=== PATIENT | female | born 1995 | race Caucasian/White ===

== ENCOUNTER 2020-03-07 10:18 | Outpatient (REF) | payer OTHER, SELFPAY ==
--- NOTE | 2020-03-07 10:21 | US_ITS ---
EXAMINATION: US THYROID CLINICAL INFORMATION: Nontoxic single thyroid nodule. COMPARISON: Ultrasound soft tissue head/neck thyroid dated 09/29/2019. TECHNIQUE: Linear transducer byers-scale and color Doppler examination with attention to the region of the thyroid. FINDINGS: SIZE: Measurements of the thyroid lobes and nodules are given in sagittal, anteroposterior and transverse dimensions respectively. Right Thyroid Lobe: 4.1 x 1.0 x 1.4 cm, volume 3.1 mL. Previously 4.3 x 0.9 x 1.4 cm, volume 2.7 mL. Parenchyma: The gland echotexture is homogeneous. Thyroid vascularity is normal. Left Thyroid Lobe: 4.4 x 1.0 x 1.3 cm, volume 2.8 mL. Previously 4.3 x 0.9 x 1.4 cm, volume 2.6 mL. Parenchyma: The gland echotexture is homogeneous. Thyroid vascularity is normal. Isthmus: 0.2 cm in maximum AP dimension. Previously 0.2 cm. RIGHT THYROID LOBE: There are 2 nodules seen. 1. Location: Midpole. Size: 0.4 x 0.3 x 0.4 cm. Previous: 0.4 x 0.3 x 0.4 cm. Nodule characteristics: Hypoechoic, smoothly marginated with no intranodular flow. 2. Location: Lower pole. Size: 0.5 x 0.3 x 0.4 cm. Previous: 0.9 x 0.5 x 0.6 cm. Nodule characteristics: Hypoechoic, irregular margins with intranodular flow. ISTHMUS: No nodules. LEFT THYROID LOBE: No nodules. NODES: No lymphadenopathy is seen in the tissue surrounding the thyroid gland. US/US thyroid IMPRESSION: Subcentimeter thyroid nodules in right thyroid lobe.
== END 2020-03-07 10:19 | disposition home or self-care (01) ==
LOC: HO.US 10:18
PROVIDERS: Visit Provider Family Medicine
DX: E03.9 Hypothyroidism, unspecified (principal); E04.1 Nontoxic single thyroid nodule
CPT/HCPCS: 76536

== ENCOUNTER 2020-03-30 08:40 | Outpatient (REF) | payer OTHER, SELFPAY ==
[2020-03-30 11:26] LABS: Alanine Aminotransferase 11 U/L (0-31); Albumin Level 4.4 g/dL (3.5-5.0); Alkaline Phosphatase 88 U/L (39-117); Anion Gap 13 (12-20); Aspartate Amino Transferase 12 U/L (5-31); Bilirubin Total 0.9 mg/dL (0.0-1.0); Blood Urea Nitrogen 11 mg/dL (9-16); Calcium 9.3 mg/dL (8.4-10.2); Carbon Dioxide 28 mmol/L (22-29); Chloride 105 mmol/L (96-108); Estimated Glomerular Filt Rate > 60; Glucose Random 92 mg/dL (60-115); Potassium 4.4 mmol/l (3.3-5.1); Sodium 142 mmol/L (135-145); Total Protein 7.2 g/dL (6.5-8.0)
== END 2020-03-30 08:41 | disposition home or self-care (01) ==
LOC: HO.WFDLDS 08:40
PROVIDERS: Visit Provider Family Medicine
DX: Z00.00 Encounter for general adult medical examination without abnormal findings (principal); E03.9 Hypothyroidism, unspecified
CPT/HCPCS: 36415; 80053; 84443

== ENCOUNTER 2020-04-08 08:18 | Outpatient (REF) | payer OTHER, SELFPAY ==
--- NOTE | ~2020-04-08 | XR_ITS ---
EXAMINATION: XR ANKLE, RIGHT CLINICAL INFORMATION: Pain COMPARISON: None TECHNIQUE: AP, lateral, and mortise views of the left ankle. FINDINGS: The bones and soft tissues are normal. No fracture. Alignment is anatomic. Joint spaces are maintained. No joint effusion. XR/XR ankle RT min 3V IMPRESSION: Unremarkable right ankle exam.
== END 2020-04-08 08:19 | disposition home or self-care (01) ==
LOC: HO.XRAY 08:18
PROVIDERS: PCP Family Medicine; Visit Provider Family Medicine
DX: M25.571 Pain in right ankle and joints of right foot (principal)
CPT/HCPCS: 73610

== ENCOUNTER → 2020-06-03 08:18 | Outpatient (BNVA) | payer OTHER, SELFPAY | PROVIDERS: PCP Family Medicine; Visit Provider Physician Assistant | DX: E66.9 Obesity, unspecified (principal) | CPT/HCPCS: 99202 ==

== ENCOUNTER → 2020-06-06 08:12 | Outpatient (BNVA) | payer OTHER, SELFPAY | PROVIDERS: PCP Family Medicine; Visit Provider Dietitian, Registered | DX: E66.9 Obesity, unspecified (principal) | CPT/HCPCS: 97802 ==

== ENCOUNTER → 2020-06-08 08:24 | Outpatient (BNVA) | payer OTHER, SELFPAY | PROVIDERS: PCP Family Medicine; Visit Provider Internal Medicine ==

== ENCOUNTER 2020-06-15 07:43 | Outpatient (REF) | payer OTHER, SELFPAY | END 2020-06-15 07:44 | disposition home or self-care (01) | LOC: HO.WFDLDS 07:43 | PROVIDERS: Visit Provider Physician Assistant | DX: Z13.89 Encounter for screening for other disorder (principal) ==

== ENCOUNTER 2020-06-17 08:14 | Outpatient (REF) | payer OTHER, SELFPAY ==
[2020-06-17 09:40] LABS: MANUAL DIFF FLAG NO
[2020-06-17 09:57] LABS: Basophils Percent Auto 0.4 % (0-2); C Reactive Protein 1.24 mg/dL (< or = 0.50); Eosinophils Absolute Auto 0.1 X10*3/uL (0.0-0.4); Eosinophils Percent Auto 1.6 % (0-4); Hemoglobin 14.7 g/dl (12.0-16.0); Imm Gran Abs Auto 0.03 X10*3/uL (0.00-0.03); Imm Gran Pct Auto 0.4 % (0.0-0.4); Iron 117 mcg/dL (30-160); Lymphocytes Absolute Auto 1.8 X10*3/uL (1.2-4.9); Lymphocytes Percent Auto 21.9 % (20-40); Mean Corpuscular HGB Conc 33.4 g/dl (31.0-35.0); Mean Corpuscular Hemoglobin 29.7 pg (27.0-33.0); Mean Corpuscular Volume 88.9 fL (80-98); Monocytes Absolute Auto 0.6 X10*3/uL (0.1-1.2); Monocytes Percent Auto 7.2 % (2-11); Neutrophils Absolute Auto 5.6 X10*3/uL (2.0-8.3); Neutrophils Percent Auto 68.5 % (45-73); Percent Iron Saturation 36 % (15-50); Platelet Count 264 X10*3/uL (160-400); Red Blood Count 4.95 X10*6/uL (4.20-5.50); Red Cell Distribution Width 12.9 % (11.0-16.0); Total Iron Binding Capacity 322 mcg/dL (228-428); Unsaturated Iron Binding 205 ug/dL; White Blood Count 8.1 X10*3/uL (4.8-10.8)
[2020-06-17 09:58] LABS: Cholesterol 147 mg/dL; HDL Cholesterol 35 mg/dL; LDL Cholesterol Calculated 98 mg/dl; Triglycerides 70 mg/dL
[2020-06-17 10:03] LABS: Estimated Average Glucose 88 mg/dL; Hemoglobin A1c % 4.7 %
[2020-06-17 10:17] LABS: Ferritin 109 ng/mL (10-122); Vitamin D 25-OH Total 29.9 ng/mL (>30)
[2020-06-17 10:30] LABS: Free T4 (Free Thyroxine) 1.07 ng/dL (0.71-1.85); Thyroid Stimulating Hormone 1.79 uIU/mL (0.32-4.0)
[2020-06-17 10:45] LABS: Folate 18.1 ng/mL (> or = 4.0); Vitamin B12 750 pg/mL (200-900)
[2020-06-18 06:01] LABS: Insulin Level Total 6.7 uIU/mL
[2020-06-18 10:02] LABS: Thyroglobulin Antibodies <1 IU/mL (< or = 1); Thyroid Peroxidase Antibodies <1 IU/mL (<9)
[2020-06-20 16:17] LABS: Calcium (PTHI) 9.4 mg/dL (8.6-10.2); PTHI 30 pg/mL (14-64)
[2020-06-21 02:56] LABS: Zinc 71 mcg/dL (60-130)
[2020-06-22 10:26] LABS: Vitamin A 33 mcg/dL (38-98)
[2020-06-23 09:16] LABS: Vitamin B1 7 nmol/L (8-30)
== END 2020-06-17 08:15 | disposition home or self-care (01) ==
LOC: HO.LAB 08:14
PROVIDERS: Absent Provider Internal Medicine; PCP Family Medicine; Visit Provider Physician Assistant
DX: E66.01 Morbid (severe) obesity due to excess calories (principal); E03.9 Hypothyroidism, unspecified; E04.2 Nontoxic multinodular goiter; E55.9 Vitamin D deficiency, unspecified
CPT/HCPCS: 36415; 80061; 82306; 82607; 82728; 82746; 83036; 83525; 83540; 83970; 84425; 84439; 84443; 84590; 84630; 85025; 86140; 86376; 86800

== ENCOUNTER → 2020-07-21 08:09 | Outpatient (BNVA) | payer OTHER, SELFPAY | PROVIDERS: PCP Family Medicine; Visit Provider Physician Assistant ==

== ENCOUNTER 2020-07-28 08:23 | Outpatient (REF) | payer OTHER, SELFPAY ==
--- NOTE | 2020-07-28 09:12 | P.BOP_ITS ---
Brief Operative Note Date of Service: 07/28/20 Surgeon: Ayanna Bajwa DO EXAMINATION: US THYROID CLINICAL INFORMATION: Multinodular Thyroid COMPARISON: Prior TECHNIQUE: Linear transducer byers-scale and color Doppler examination with attention to the region of the thyroid. FINDINGS: SIZE: Measurements of the thyroid lobes and nodules are given in sagittal, anteroposterior and transverse dimensions respectively. Right Thyroid Lobe: 4.21 x 1.11 x 1.54 cm, volume 3.78 mL. Parenchyma: The gland echotexture is heterogenous. Thyroid vascularity is normal. Left Thyroid Lobe: 4.5 x 0.91 x 1.4 cm, volume 3.03 mL. Parenchyma: The gland echotexture is heterogenous. Thyroid vascularity is normal. Isthmus: 1.15 cm in maximum AP dimension. RIGHT THYROID LOBE: There is 1 nodule in the right mid pole. There is a 0.807 x 0.348 x 0.564 cm predominantly cystic nodule. LEFT THYROID LOBE: There are no nodules. NODES: Small lymph node posterior to the right mid pole. IMPRESSION: Small, heterogenous thyroid gland with a solitary cystic appearing nodule within the right mid pole. Was an Animal Damage Control Agent used for this Procedure?: No Estimated blood loss (mL): 0
== END 2020-07-28 08:24 | disposition home or self-care (01) ==
LOC: HO.US 08:23
PROVIDERS: Visit Provider Internal Medicine
DX: E04.2 Nontoxic multinodular goiter (principal)
CPT/HCPCS: 76536

== ENCOUNTER → 2020-08-10 07:57 | Outpatient (BNVA) | payer OTHER, SELFPAY | PROVIDERS: Visit Provider Internal Medicine ==

== ENCOUNTER 2020-09-20 10:18 | Outpatient (REF) | payer OTHER, SELFPAY ==
--- NOTE | ~2020-09-20 | XR_ITS ---
EXAMINATION: BILATERAL HAND CLINICAL INFORMATION: Bilateral hand pain COMPARISON: None TECHNIQUE: 3 views each hand FINDINGS: No significant bone, joint or soft tissue abnormality is seen. A small bone island is present in the left scaphoid. XR/XR hand RT min 3V IMPRESSION: No significant abnormality is seen.
--- NOTE | ~2020-09-20 | XR_ITS ---
EXAMINATION: BILATERAL HAND CLINICAL INFORMATION: Bilateral hand pain COMPARISON: None TECHNIQUE: 3 views each hand FINDINGS: No significant bone, joint or soft tissue abnormality is seen. A small bone island is present in the left scaphoid. XR/XR hand LT min 3V IMPRESSION: No significant abnormality is seen.
[2020-09-20 12:09] LABS: MANUAL DIFF FLAG NO
[2020-09-20 12:17] LABS: Basophils Percent Auto 0.3 % (0-2); Eosinophils Absolute Auto 0.1 X10*3/uL (0.0-0.4); Eosinophils Percent Auto 1.1 % (0-4); Hematocrit 42.6 % (37-47); Hemoglobin 14.3 g/dl (12.0-16.0); Imm Gran Abs Auto 0.03 X10*3/uL (0.00-0.03); Imm Gran Pct Auto 0.3 % (0.0-0.4); Lymphocytes Absolute Auto 2.1 X10*3/uL (1.2-4.9); Lymphocytes Percent Auto 19.3 % (20-40); Mean Corpuscular HGB Conc 33.6 g/dl (31.0-35.0); Mean Corpuscular Hemoglobin 30.1 pg (27.0-33.0); Mean Corpuscular Volume 89.7 fL (80-98); Mean Platelet Volume 11.6 fL (9.4-12.3); Monocytes Absolute Auto 0.7 X10*3/uL (0.1-1.2); Monocytes Percent Auto 6.5 % (2-11); Neutrophils Absolute Auto 7.9 X10*3/uL (2.0-8.3); Neutrophils Percent Auto 72.5 % (45-73); Platelet Count 226 X10*3/uL (160-400); Red Blood Count 4.75 X10*6/uL (4.20-5.50); Red Cell Distribution Width 12.5 % (11.0-16.0); White Blood Count 10.9 X10*3/uL (4.8-10.8)
[2020-09-20 12:34] LABS: Alanine Aminotransferase 7 U/L (0-31); Albumin Level 4.5 g/dL (3.5-5.0); Alkaline Phosphatase 71 U/L (39-117); Anion Gap 15 (12-20); Aspartate Amino Transferase 11 U/L (5-31); Blood Urea Nitrogen 13 mg/dL (9-16); Calcium 9.6 mg/dL (8.4-10.2); Carbon Dioxide 21 mmol/L (22-29); Chloride 107 mmol/L (96-108); Estimated Glomerular Filt Rate > 60; Glucose Random 86 mg/dL (60-115); Potassium 4.2 mmol/L (3.3-5.1); Rheumatoid Factor < 15.0 IU/mL (<15.0); Sodium 139 mmol/L (135-145); Total Protein 7.3 g/dL (6.5-8.0)
[2020-09-20 13:37] LABS: Erythrocyte Sedimentation Rate 7 MM/HR (0-20)
[2020-09-21 16:46] LABS: Cyclic Citrullinated Peptide <16 UNITS
[2020-09-22 13:57] LABS: Anti Nuclear Antibody Screen NEGATIVE (NEGATIVE)
[2020-09-24 10:10] LABS: Vitamin B1 11 nmol/L (8-30)
[2020-09-24 19:52] LABS: Vitamin A 35 mcg/dL (38-98)
== END 2020-09-20 10:19 | disposition home or self-care (01) ==
LOC: HO.XRAY 10:18
PROVIDERS: Physician Assistant; PCP Family Medicine; Visit Provider Student in an Organized Health Care Education/Training Program
DX: M79.641 Pain in right hand (principal); M79.642 Pain in left hand; E51.9 Thiamine deficiency, unspecified; E50.9 Vitamin A deficiency, unspecified; Z79.899 Other long term (current) drug therapy
CPT/HCPCS: 36415; 73130; 80053; 84425; 84590; 85025; 85652; 86038; 86039; 86140; 86200; 86431; 99202

== ENCOUNTER → 2020-10-06 08:14 | Outpatient (BNVA) | payer OTHER, SELFPAY | PROVIDERS: Visit Provider Dietitian, Registered | DX: E66.9 Obesity, unspecified (principal); Z68.32 Body mass index [BMI] 32.0-32.9, adult | CPT/HCPCS: 97803 ==

== ENCOUNTER → 2020-10-18 12:27 | Outpatient (BNVA) | payer OTHER, SELFPAY | PROVIDERS: PCP Family Medicine; Visit Provider Student in an Organized Health Care Education/Training Program | DX: M79.641 Pain in right hand (principal); M79.642 Pain in left hand | CPT/HCPCS: 99212 ==

== ENCOUNTER → 2020-11-17 08:13 | Outpatient (BNVA) | payer OTHER, SELFPAY | PROVIDERS: PCP Family Medicine; Visit Provider Dietitian, Registered | DX: E66.9 Obesity, unspecified (principal); Z68.32 Body mass index [BMI] 32.0-32.9, adult | CPT/HCPCS: 97803 ==

== ENCOUNTER 2020-11-22 08:16 | Outpatient (REF) | payer OTHER, SELFPAY ==
[2020-11-22 09:56] LABS: Free T4 (Free Thyroxine) 0.99 ng/dL (0.71-1.85); Vitamin D 25-OH Total 41.3 ng/mL (>30)
== END 2020-11-22 08:17 | disposition home or self-care (01) ==
LOC: HO.LAB 08:16
PROVIDERS: Absent Provider Physician Assistant; PCP Family Medicine; Visit Provider Internal Medicine
DX: E03.9 Hypothyroidism, unspecified (principal); E55.9 Vitamin D deficiency, unspecified
CPT/HCPCS: 36415; 82306; 84439; 84443

== ENCOUNTER → 2020-12-05 08:02 | Outpatient (BNVA) | payer OTHER, SELFPAY | PROVIDERS: PCP Family Medicine; Visit Provider Physician Assistant ==

== ENCOUNTER 2020-12-13 09:02 | Outpatient (REF) | payer OTHER, SELFPAY ==
[2020-12-13 11:32] LABS: Hematocrit 43.9 % (37-47); Hemoglobin 14.5 g/dl (12.0-16.0); Mean Corpuscular Hemoglobin 29.8 pg (27.0-33.0); Mean Corpuscular Volume 90.3 fL (80-98); Mean Platelet Volume 11.1 fL (9.4-12.3); Platelet Count 242 X10*3/uL (160-400); Red Blood Count 4.86 X10*6/uL (4.20-5.50); Red Cell Distribution Width 12.3 % (11.0-16.0); White Blood Count 10.1 X10*3/uL (4.8-10.8)
[2020-12-13 11:45] LABS: Anion Gap 12 (12-20); Blood Urea Nitrogen 10 mg/dL (9-16); Calcium 9.4 mg/dL (8.4-10.2); Carbon Dioxide 26 mmol/L (22-29); Chloride 106 mmol/L (96-108); Estimated Glomerular Filt Rate > 60; Glucose Fasting 91 mg/dL (60-99); Potassium 4.2 mmol/L (3.3-5.1); Sodium 140 mmol/L (135-145)
== END 2020-12-13 09:03 | disposition home or self-care (01) ==
LOC: HO.WFDLDS 09:02
PROVIDERS: Visit Provider Hospitalist
DX: M79.629 Pain in unspecified upper arm (principal)
CPT/HCPCS: 36415; 80048; 85027

== ENCOUNTER → 2021-01-09 08:04 | Outpatient (BNVA) | payer OTHER, SELFPAY | PROVIDERS: PCP Family Medicine; Visit Provider Physician Assistant ==

== ENCOUNTER → 2021-02-17 08:07 | Outpatient (BNVA) | payer OTHER, SELFPAY | PROVIDERS: PCP Family Medicine; Visit Provider Physician Assistant ==

== ENCOUNTER 2021-03-01 09:14 | Outpatient (REF) | payer OTHER, SELFPAY ==
[2021-03-01 10:28] LABS: Free T4 (Free Thyroxine) 1.08 ng/dL (0.71-1.85); Thyroid Stimulating Hormone 1.33 uIU/mL (0.32-4.0)
[2021-03-07 13:01] LABS: Vitamin A 38 mcg/dL (38-98)
== END 2021-03-01 09:15 | disposition home or self-care (01) ==
LOC: HO.LAB 09:14
PROVIDERS: Physician Assistant; PCP Hospitalist; Visit Provider Internal Medicine
DX: E50.9 Vitamin A deficiency, unspecified (principal); E03.9 Hypothyroidism, unspecified
CPT/HCPCS: 36415; 84439; 84443; 84590

== ENCOUNTER → 2021-04-06 08:28 | Outpatient (BNVA) | payer OTHER, SELFPAY | PROVIDERS: PCP Hospitalist; Visit Provider Physician Assistant ==

== ENCOUNTER → 2021-06-07 08:13 | Outpatient (BNVA) | payer OTHER, SELFPAY | PROVIDERS: PCP Hospitalist; Visit Provider Physician Assistant | DX: E66.3 Overweight (principal); Z79.899 Other long term (current) drug therapy; Z71.3 Dietary counseling and surveillance | CPT/HCPCS: Q3014 ==

== ENCOUNTER 2021-07-27 10:23 | Outpatient (REF) | payer OTHER, SELFPAY ==
[2021-07-27 11:22] LABS: Hematocrit 41.2 % (37.0-47.0); Hemoglobin 13.6 g/dl (12.0-16.0); Mean Corpuscular Hemoglobin 30.5 pg (27.0-33.0); Mean Corpuscular Volume 92.4 fL (80.0-98.0); Mean Platelet Volume 10.8 fL (9.4-12.3); Platelet Count 239 X10*3/uL (160-400); Red Blood Count 4.46 X10*6/uL (4.20-5.50); Red Cell Distribution Width 12.7 % (11.0-16.0); White Blood Count 8.1 X10*3/uL (4.8-10.8)
[2021-07-27 11:54] LABS: Alanine Aminotransferase 14 U/L (0-31); Albumin Level 4.4 g/dL (3.5-5.0); Alkaline Phosphatase 59 U/L (39-117); Anion Gap 12 (12-20); Aspartate Amino Transferase 12 U/L (5-31); Bilirubin Total 0.8 mg/dL (0.0-1.0); Blood Urea Nitrogen 13 mg/dL (9-16); Calcium 9.5 mg/dL (8.4-10.2); Carbon Dioxide 25 mmol/L (22-29); Chloride 107 mmol/L (96-108); Cholesterol 138 mg/dL; Estimated Glomerular Filt Rate > 60; Glucose Fasting 83 mg/dL (60-99); HDL Cholesterol 45 mg/dL; LDL Cholesterol Calculated 85 mg/dl; Potassium 4.3 mmol/L (3.3-5.1); Sodium 140 mmol/L (135-145); Triglycerides 41 mg/dL
[2021-07-27 12:17] LABS: TSH reflex Free T4 1.29 uIU/mL (0.32-4.0)
[2021-08-01 14:31] LABS: Vitamin D 25-OH, D2 <4 ng/mL; Vitamin D 25-OH, D3 24 ng/mL; Vitamin D 25-OH, Total 24 ng/mL (30-100)
[2021-08-02 14:55] LABS: Vitamin A 35 mcg/dL (38-98)
== END 2021-07-27 10:24 | disposition home or self-care (01) ==
LOC: HO.WFDLDS 10:23
PROVIDERS: Visit Provider Hospitalist
DX: Z00.00 Encounter for general adult medical examination without abnormal findings (principal); E55.9 Vitamin D deficiency, unspecified; E50.9 Vitamin A deficiency, unspecified
CPT/HCPCS: 36415; 80053; 80061; 82306; 84443; 84590; 85027

== ENCOUNTER → 2021-08-07 10:00 | Outpatient (BNVA) | payer OTHER, SELFPAY | PROVIDERS: PCP Hospitalist; Visit Provider Physician Assistant | DX: E66.3 Overweight (principal); Z68.28 Body mass index [BMI] 28.0-28.9, adult | CPT/HCPCS: 99212 ==

== ENCOUNTER → 2022-03-12 08:12 | Outpatient (BNVA) | payer OTHER, SELFPAY | PROVIDERS: PCP Hospitalist; Visit Provider Internal Medicine | DX: E03.9 Hypothyroidism, unspecified (principal); E55.9 Vitamin D deficiency, unspecified | CPT/HCPCS: 99212 ==

== ENCOUNTER 2022-03-12 09:02 | Outpatient (REF) | payer OTHER, SELFPAY ==
[2022-03-12 12:07] LABS: Free T4 (Free Thyroxine) 1.04 ng/dL (0.71-1.85); Thyroid Stimulating Hormone 1.45 uIU/mL (0.32-4.0); Vitamin D 25-OH Total 25.7 ng/mL (>30)
== END 2022-03-12 09:03 | disposition home or self-care (01) ==
LOC: HO.10HDL 09:02
PROVIDERS: Visit Provider Internal Medicine
DX: E03.9 Hypothyroidism, unspecified (principal); E04.2 Nontoxic multinodular goiter; E55.9 Vitamin D deficiency, unspecified
CPT/HCPCS: 36415; 82306; 84439; 84443

== ENCOUNTER 2023-01-17 11:24 | Outpatient (AMB) | payer OTHER, SELFPAY ==
[2023-01-17 11:26] VITALS: BP 92/64; PULSE 86; O2SAT 97; BMI 29.9
--- NOTE | 2023-01-17 11:26 | A.OFFPC_ITS ---
Vital Signs 01/17/23 11:26 01/17/23 12:12 Height 5 ft 4 in Weight 174 lb 0.6 oz BMI 29.9 BP 92/64 104/72 Blood Pressure Location Lt brachial Lt brachial Position Sitting Sitting Pulse 86 Pulse Source Pulse Oximeter Pulse Oximetry (%) 97 Oxygen Delivery Method Room Air Intake Visit Reasons: Transfer care from [facility] House Worker Required: No Allergies house dust Allergy (Verified 01/17/23 12:01) sneezing congestion headache raw apple Adverse Reaction (Intermediate, Uncoded 01/17/23 12:01) itching raw tree nut Adverse Reaction (Intermediate, Uncoded 01/17/23 12:01) Itching Medication List - Last Reconciled 01/17/23 by DANICA Sánchez albuterol sulfate 90 mcg/actuation (ProAir HFA) inhalation cholecalciferol (vitamin D3) 50 mcg PO DAILY levothyroxine 50 mcg PO DAILY loratadine 10 mg PO DAILY PRN [magnesium PO] montelukast 10 mg PO DAILY [multivitamin PO] vitamin A palmitate (A-25 (vit A palmitate)) 7,500 mcg PO QWEEK 3 months [vitamin C PO] Tobacco use date assessed: 01/17/23 Dental Screening Dental Screen Date: 01/17/23 Did you have a dental visit in the last 12 months?: Yes Did you have a dental problem in the last 6 months where you did not have access to dental care?: No Was dental information given to patient?: Patient has dentist HPI Transfer care from [facility] HPI Details Patient is a 27-year-old female who presents today to transfer care from [facility]. Medical history significant for hypothyroidism-followed by [facility], vitamin-D deficiency, vitamin A deficiency, overweight, asthma. 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 Reports anxiety improves with breathing exercises, not interested in counseling referral at this time. No shortness of breath or chest pain. Patient also reports intermittent insomnia and she drinks teas with improvement. [facility] Medical History BMI 33.0-33.9,adult Vitamin B1 deficiency Vitamin A deficiency Vitamin D deficiency Bilateral hand pain Right ankle pain Ingrown nail Hypothyroidism (acquired) Thyroid nodule Surgical History Hx of wisdom tooth extraction No pertinent past surgical history Family History Father No problems noted. Mother Hypothyroidism Brother No problems noted. Social History Household Members Other:: mom Housing: Apartment Alcohol intake: never Patient Tobacco Use Status: Never used Tobacco e-Cigarette/Vaping Use: Never Used service: No Current occupational status: student Current occupational exposures/hazards: No Sexual orientation: Asexual Gender identity: Female Cognitive needs: No Hearing needs: No Vision needs: No Female Reproductive History Menstrual Age of Menarche: 13 Questionnaire PHQ-9 Over the last 2 weeks, how often have you been bothered by any of the following problems? 1. Little interest or pleasure in doing things: not at all 2. Feeling down, depressed, or hopeless: not at all 3. Trouble falling or staying asleep, or sleeping too much: nearly every day 4. Feeling tired or having little energy: nearly every day 5. Poor appetite or overeating: not at all 6. Feeling bad about yourself - or that you are a failure or have let yourself or your family down: not at all 7. Trouble concentrating on things, such as reading the newspaper or watching television: several days 8. Moving or speaking so slowly that other people could have noticed. Or the opposite - being so fidgety or restless that you have been moving around a lot more than usual: several days 9. Thoughts that you would be better off or of hurting yourself in some way: not at all Total score: 8 Depression Screening Interpretation: Negative Depression Screening Done: Yes 16129 - PHQ-9 Billing: Yes Source: Developed by Drs. Brice Freeman, Samara Dominique, Yuniel Griffith and colleagues, with an educational george from [employer]. Thrive Questionnaire Date Thrive assessed: 09/06/21 AUDIT C Alcohol Use Questionnaire (AUDIT-C) 1. How often do you have a drink containing alcohol?: Never Total Score: 0 Score Reviewed/Action Taken: No MARVIN-7 AMB Questionnaire MARVIN-7 Date MARVIN - 7 assessed: 01/17/23 Feeling nervous, anxious, or on edge: 1 = Several days Not being able to stop or control worryin = Several days Worrying too much about different things: 1 = Several days Trouble relaxin = Several days Being so restless that it is hard to sit still: 0 = Not at all Becoming easily annoyed or irritable: 0 = Not at all Feeling afraid as if something awful might happen: 0 = Not at all Total MARVIN-7 score (0-4 normal; 5-9 mild; 10-14 moderate; 15-21 severe): 4 Source: Developed by Drs. Brice Freeman, Samara Dominique, Yuniel Griffith and colleagues, with an educational george from [employer]. MARVIN-7 Assessment Billing MARVIN-7 Assessment Tool: MARVIN-7 Assessment 21988 Review of Systems Const Denies body aches, Denies chills, Denies fever(s) and Denies headache(s) ENT Denies dizziness, Denies otalgia, Denies headache(s), Denies nasal discharge, Denies sinus pain and Denies sore throat Card Denies chest pain, Denies edema, Denies lightheadedness and Denies dyspnea Resp Denies cough, Denies dyspnea and Denies wheezing GI Denies abdominal pain Denies dysuria Musc Denies myalgias and Reports arthralgias Skin/Breast Denies rash Neuro Denies dizziness and Denies headache(s) Psych Reports anxiety Aller/Immun Denies wheezing Physical exam (Primary Care) Vital Signs: Last Vital Signs Pulse 86 01/17/23 11:26 BP 104/72 01/17/23 12:12 Pulse Ox 97 01/17/23 11:26 Oxygen Delivery Method Room Air 01/17/23 11:26 BMI result Body Mass Index 29.9 Tobacco/Smoking Status: Tobacco use Status Tobacco use date assessed 01/17/23 01/17/23 11:27 Patient Tobacco Use Status Never used Tobacco 01/17/23 11:27 e-Cigarette/Vaping Use Never Used 01/17/23 11:27 PHQ-9: PHQ-9 Score PHQ-9: Total score 8 01/17/23 12:05 Depression Screening Interpretation: Negative Thrive Assessment: Date of Thrive Assessment Date Thrive assessed 09/06/21 01/17/23 11:27 Const General: cooperative and no acute distress Orientation/consciousness: patient oriented x3 HENMT Head: Yes normocephalic and Yes atraumatic Ears: TM's normal bilaterally Face and sinus: Yes sinuses nontender Mouth: oropharynx normal and moist mucous membranes Throat: Yes posterior oropharynx normal Eyes General: appearance normal, both eyes and all related structures Pupils: Equal, round and reactive pupils present EOM: EOMs intact bilaterally Neck Neck: Yes normal visual inspection, Yes full ROM and Yes no lymphadenopathy Thyroid: Thyroid normal Resp Effort & Inspection: normal respiratory effort and able to speak in complete sentences Auscultation: clear to auscultation bilaterally, no crackles, no rales, no rho nchi and no wheezes Cardio Rate: regular rate Rhythm: regular rhythm Heart sounds: S1 normal heart sound present, S2 normal heart sound present and no murmurs GI Palpation (GI): Soft to palpation, not firm, nontender, no guarding, not rigid and no hepatosplenomegaly Auscultation: normal bowel sounds General: No CVA tenderness Back/Spine/Pelvis Back: No CVA tenderness Skin General skin exam: no rashes or lesions noted Neuro General: patient oriented x3 Cranial nerves: Yes Equal, round and reactive pupils present Gait exam (Neuro): Normal gait present Extrem General: Yes full ROM and No edema Office Procedures Flu Questionnaire Does the patient have a severe egg allergy?: No Does the patient have severe life threatening allergies?: No Does the patient have a fever or illness today?: No Has the patient ever had Guillain-[place] Syndrome?: No Has the patient ever had any past reaction to a flu shot?: No Immunizations flu vacc [id number] 6mos up(PF) 60 mcg(15 mcgx4)/0.5 mL IM syringe Performing Provider: DANICA Sánchez [facility] Administered by: Tita Jacinto RN on 01/17/23 12:34 Dose Route Admin Location Dispensed Lot Number Expiration Date NDC 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 and montelukast (3) Low vitamin D level: Code(s): R79.89 - Other specified abnormal findings of blood chemistry Plan: Will check vitamin-D level (4) Overweight: Code(s): E66.3 - Overweight Plan: Healthy food choices and exercise as tolerated (5) Situational anxiety: Code(s): F41.8 - Other specified anxiety disorders Plan: Patient reports that anxiety improves breathing exercises Would like to hold off on counseling referral (6) Vitamin A deficiency: Code(s): E50.9 - Vitamin A deficiency, unspecified Plan: Will check vitamin A level (7) Hypothyroidism (acquired): Code(s): E03.9 - Hypothyroidism, unspecified Plan: Continue to follow-up with [facility] Continue levothyroxine Orders: Orders Vitamin D 25-OH Total Today R79.89 - Other specified abnormal findings of blood chemistry Comprehensive Met. Panel Today J45.909 - Unspecified asthma, uncomplicated Vitamin A Today E50.9 - Vitamin A deficiency, unspecified Influenza [id number] Immunization Today Z23 - Encounter for immunization TSH reflex Free T4 Today E03.9 - Hypothyroidism, unspecified Complete Blood Count no Diff Today J45.909 - Unspecified asthma, uncomplicated OT Evaluation and Treatment Today M25.531 - Pain in right wrist, M25.532 - Pain in left wrist Coding Level of Care Code Est Pt Level 4 (32815) Diagnoses Bilateral wrist pain M25.531; M25.532 Asthma J45.909 Low vitamin D level R79.89 Overweight E66.3 Situational anxiety F41.8 Vitamin A deficiency E50.9 Hypothyroidism (acquired) E03.9 Additional Codes MARVIN-7 Assessment Billing - MARVIN-7 Assessment Tool: MARVIN-7 Assessment 88695 ([id number])
[2023-01-17 12:12] VITALS: BP 104/72
== END 2023-01-17 14:52 | disposition home or self-care (01) ==
PROVIDERS: PCP Hospitalist; Visit Provider Nurse Practitioner Family
DX: Z23 Encounter for immunization (principal); M25.531 Pain in right wrist; M25.532 Pain in left wrist; J45.909 Unspecified asthma, uncomplicated; R79.89 Other specified abnormal findings of blood chemistry; F41.8 Other specified anxiety disorders; E50.9 Vitamin A deficiency, unspecified; E03.9 Hypothyroidism, unspecified
CPT/HCPCS: 90471; 90686; 99214

== ENCOUNTER 2023-01-17 12:36 | Outpatient (REF) | payer OTHER, SELFPAY ==
[2023-01-17 13:01] LABS: Hematocrit 39.2 % (37.0-47.0); Hemoglobin 13.5 g/dl (12.0-16.0); Mean Corpuscular HGB Conc 34.4 g/dl (31.0-35.0); Mean Corpuscular Volume 89.9 fL (80.0-98.0); Mean Platelet Volume 10.1 fL (9.4-12.3); Platelet Count 244 X10*3/uL (160-400); Red Blood Count 4.36 X10*6/uL (4.20-5.50); White Blood Count 9.7 X10*3/uL (4.8-10.8)
[2023-01-17 13:42] LABS: Alanine Aminotransferase 8 U/L (0-31); Albumin Level 4.6 g/dL (3.5-5.0); Alkaline Phosphatase 53 U/L (39-117); Anion Gap 10 (12-20); Aspartate Amino Transferase 14 U/L (5-31); Bilirubin Total 0.9 mg/dL (0.0-1.0); Blood Urea Nitrogen 12 mg/dL (9-16); Calcium 9.5 mg/dL (8.4-10.2); Carbon Dioxide 28 mmol/L (22-29); Chloride 107 mmol/L (96-108); Estimated Glomerular Filt Rate > 60; Glucose Random 90 mg/dL (60-115); Potassium 3.7 mmol/L (3.3-5.1); Sodium 141 mmol/L (135-145); Total Protein 7.4 g/dL (6.5-8.0)
[2023-01-17 13:59] LABS: TSH reflex Free T4 1.03 uIU/mL (0.32-4.0); Vitamin D 25-OH Total 37.1 ng/mL (>30)
== END 2023-01-17 12:37 | disposition home or self-care (01) ==
LOC: HO.LAB 12:36
PROVIDERS: PCP Nurse Practitioner Family; Visit Provider Nurse Practitioner Family
DX: E03.9 Hypothyroidism, unspecified (principal); J45.909 Unspecified asthma, uncomplicated; E50.9 Vitamin A deficiency, unspecified; E55.9 Vitamin D deficiency, unspecified
CPT/HCPCS: 36415; 80053; 82306; 84443; 84590; 85027

== ENCOUNTER 2023-01-18 12:20 | Outpatient (AMB) | payer OTHER, SELFPAY ==
--- NOTE | 2023-01-18 13:21 | A.OFFVIS_ITS ---
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 Scribed for DENNISE Cross by Letty Ashton senior medical technologist, on 01/18/2023 at 1:55 pm EST Passenger Relations Representative Required: No Information Interpreted: non-clinical & clinical Refrigerated Cargo Clerk: Refrigerated Cargo Clerk Present (Ally GUTIERRES) Accompanied by: Self / Same As Patient Allergies house dust Allergy (Verified 01/18/23 13:24) sneezing congestion headache raw apple Adverse Reaction (Intermediate, Uncoded 01/18/23 13:24) itching raw tree nut Adverse Reaction (Intermediate, Uncoded 01/18/23 13:24) Itching Is last menstrual period known: Yes Last menstrual period: 01/03/23 HPI HPI Comments History of Present Illness Details She is a premenopausal woman presenting for annual exam. 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 She attempts to eat healthy and stay active, wants to start exercising. Not sexually active ever, asexual. Regular monthly periods that last approximately 5-7 days, sometimes heavy. Baseline pelvic US in [facility] due to not having pelvic exam, normal per patient. Denies vaginal itching and irritation. Denies family hx of breast, colon and ovarian cancer. [facility] Medical History BMI 33.0-33.9,adult Vitamin B1 deficiency Vitamin A deficiency Vitamin D deficiency Bilateral hand pain Right ankle pain Ingrown nail Hypothyroidism (acquired) Thyroid nodule Surgical History Hx of wisdom tooth extraction No pertinent past surgical history Family History Father No problems noted. Mother Hypothyroidism Brother No problems noted. Social History Household Members Other:: mom Housing: Apartment Alcohol intake: never Patient Tobacco Use Status: Never used Tobacco e-Cigarette/Vaping Use: Never Used service: No Current occupational status: student Current occupational exposures/hazards: No Sexual orientation: Asexual Gender identity: Female Cognitive needs: No Hearing needs: No Vision needs: No Female Reproductive History Menstrual Age of Menarche: 13 Date of last menstrual period: 01/03/23 Review of Systems Const All systems reviewed & are unremarkable except as noted in HPI and below Physical Exam Vital Signs: Last Vital Signs BP 110/68 01/18/23 13:23 BMI result Body Mass Index 28.7 Const General: cooperative, healthy appearing, no acute distress, well developed and alert Orientation/consciousness: patient oriented x3 HEENT Head: Yes normal to inspection Eyes General: appearance normal, both eyes and all related structures Neck Neck: Yes normal visual inspection Thyroid: Thyroid normal Chest Chest palpation & inspection: normal inspection of the chest Breast/axilla inspection: normal inspection of the breasts (no puckering, dimpling, peau de orange, retraction, discharge, masses) Breast/axilla palpation: normal palpation of the breasts Resp Effort & Inspection: normal respiratory effort GI Inspection: Yes normal to inspection Palpation (GI): Soft to palpation (non tender, no masses) Rectal Exam - Female: deferred Other: declined today. Skin General skin exam: no rashes or lesions noted Neuro General: patient oriented x3 Cognition (Neuro): normal cognition Extrem General: Yes normal to inspection Psych Attitude: cooperative Thought process: Normal thought process present Assessment & Plan Assessment & Plan (1) Encounter for well woman exam: Code(s): Z01.419 - Encounter for gynecological examination (general) (routine) without abnormal findings Plan: Discussed: Current recommendations for pap smears per ASCCP guidelines. Breast awareness and periodic self breast exams. Maintaining a healthy lifestyle including a well balanced diet and routine exercise. Reviewed normal spacing of menses, contact office that are spaced out shorter than 3?weeks and greater than 3 months. Discussed limitations of pelvic anatomy with abdominal exam and recommended pelvic US for evaluation, patient declined. Contact office with any pelvic pain, heavy bleeding or concerns. All of her questions and concerns were addressed to the best of my ability. RTO in one year for AG. discussed Coding Level of Care Code Est Pt Prev Care 18-39y(06392) Diagnoses Encounter for well woman exam Z01.419
[2023-01-18 13:23] VITALS: BP 110/68; BMI 28.7
== END 2023-01-18 14:08 | disposition home or self-care (01) ==
PROVIDERS: PCP Hospitalist; Visit Provider Advanced Practice Midwife
DX: Z01.419 Encounter for gynecological examination (general) (routine) without abnormal findings (principal)
CPT/HCPCS: 99395

== ENCOUNTER → 2023-01-18 12:20 | Outpatient (BNVA) | payer OTHER, SELFPAY | PROVIDERS: PCP Hospitalist; Visit Provider Advanced Practice Midwife ==

== ENCOUNTER 2023-03-26 09:11 | Outpatient (REF) | payer OTHER, SELFPAY ==
[2023-03-26 11:09] LABS: Free T4 (Free Thyroxine) 1.12 ng/dL (0.71-1.85); Thyroid Stimulating Hormone 0.83 uIU/mL (0.32-4.0)
[2023-03-30 07:07] LABS: Vitamin A 51 mcg/dL (38-98)
== END 2023-03-26 09:12 | disposition home or self-care (01) ==
LOC: HO.LAB 09:11
PROVIDERS: PCP Nurse Practitioner Family; Visit Provider Internal Medicine Endocrinology, Diabetes & Metabolism
DX: E03.9 Hypothyroidism, unspecified (principal); E50.9 Vitamin A deficiency, unspecified
CPT/HCPCS: 36415; 84439; 84443; 84590

== ENCOUNTER 2023-04-04 10:24 | Outpatient (AMB) | payer OTHER, SELFPAY ==
--- NOTE | 2023-04-04 10:38 | MHC.OFFVIS ---
Intake Vital Signs 04/04/23 10:39 Height 5 ft 4 in Weight 181 lb 14.102 oz BMI 31.2 BP 94/56 L Blood Pressure Location Lt brachial Position Sitting Pulse 107 H Pulse Source Pulse Oximeter Intake Visit Reasons: F/U Hypothyroidism-confirmed Intake Note: Patient present today for Hypothyroidism follow up visit. Last seen on 03/12/[address] Magaña. Med Dir Required: No Accompanied by: Self / Same As Patient Allergies house dust Allergy (Verified 04/04/23 10:45) sneezing congestion headache raw apple Adverse Reaction (Intermediate, Uncoded 01/18/23 13:24) itching raw tree nut Adverse Reaction (Intermediate, Uncoded 01/18/23 13:24) Itching Medication List - Last Reconciled 04/04/23 by Brice Barksdale MD albuterol sulfate 90 mcg/actuation (ProAir HFA) inhalation levothyroxine 50 mcg PO DAILY loratadine 10 mg PO DAILY PRN [magnesium PO] montelukast 10 mg PO DAILY [multivitamin PO] [vitamin C PO] HPI HPI Comments History of Present Illness Details 27 YO Female with no significant PMHx who is seen in F/U for hypothyroidism.. The patient last saw Dr. Magaña on 03/12/2022 First diagnosed with Hypothyroidism September 2019 with labs revealing a TSH of 4.63. Currently using Levothyroxine 25 mcg PO daily. She has not yet repeated her TFTs. I repeated her thyroid US 07/28/2020 and this revealed a small heterogenous thyroid, consistent with lars's disease. No true nodules were visualized, only pseudonodules. Reports feeling well today with no complaints. Thyroid US: 03/07/2020 Right Thyroid Lobe: 4.1 x 1.0 x 1.4 cm, volume 3.1 mL. Previously 4.3 x 0.9 x 1.4 cm, volume 2.7 mL. Parenchyma: The gland echotexture is homogeneous. Thyroid vascularity is normal. Left Thyroid Lobe: 4.4 x 1.0 x 1.3 cm, volume 2.8 mL. Previously 4.3 x 0.9 x 1.4 cm, volume 2.6 mL. Parenchyma: The gland echotexture is homogeneous. Thyroid vascularity is normal. Isthmus: 0.2 cm in maximum AP dimension. Previously 0.2 cm. RIGHT THYROID LOBE: There are 2 nodules seen. 1. Location: Midpole. Size: 0.4 x 0.3 x 0.4 cm. Previous: 0.4 x 0.3 x 0.4 cm. Nodule characteristics: Hypoechoic, smoothly marginated with no intranodular flow. 2. Location: Lower pole. Size: 0.5 x 0.3 x 0.4 cm. Previous: 0.9 x 0.5 x 0.6 cm. Nodule characteristics: Hypoechoic, irregular margins with intranodular flow. ISTHMUS: No nodules. LEFT THYROID LOBE: No nodules. NODES: No lymphadenopathy is seen in the tissue surrounding the thyroid gland. [facility] Medical History BMI 33.0-33.9,adult Vitamin B1 deficiency Vitamin A deficiency Vitamin D deficiency Bilateral hand pain Right ankle pain Ingrown nail Hypothyroidism (acquired) Thyroid nodule Surgical History Hx of wisdom tooth extraction No pertinent past surgical history Family History Father No problems noted. Mother Hypothyroidism Brother No problems noted. Social History Household Members Other:: mom Housing: Apartment Alcohol intake: never Patient Tobacco Use Status: Never used Tobacco e-Cigarette/Vaping Use: Never Used service: No Current occupational status: student Current occupational exposures/hazards: No Sexual orientation: Asexual Gender identity: Female Cognitive needs: No Hearing needs: No Vision needs: No Female Reproductive History Menstrual Age of Menarche: 13 Physical Exam Vital Signs: Last Vital Signs Pulse 107 H 04/04/23 10:39 BP 94/56 L 04/04/23 10:39 BMI result Body Mass Index 31.2 Const Other: Thyroid gland is normal size weighs about 15 g. 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 She appears to be clinically and biochemically euthyroid. Plan is to continue the current management. At this point, patient can follow up with the primary care provider and be returned back to endocrinology as needed Coding Level of Care Code Est Pt Level 3 (86585) Diagnoses Hypothyroidism (acquired) E03.9
[2023-04-04 10:39] VITALS: BP 94/56; PULSE 107; BMI 31.2
== END 2023-04-04 10:50 | disposition home or self-care (01) ==
PROVIDERS: PCP Hospitalist; Visit Provider Internal Medicine Endocrinology, Diabetes & Metabolism
DX: E03.9 Hypothyroidism, unspecified (principal)
CPT/HCPCS: 99213

== ENCOUNTER → 2023-04-04 10:24 | Outpatient (BNVA) | payer OTHER, SELFPAY | PROVIDERS: PCP Hospitalist; Visit Provider Internal Medicine Endocrinology, Diabetes & Metabolism | DX: E06.3 Autoimmune thyroiditis (principal); E03.8 Other specified hypothyroidism; Z79.899 Other long term (current) drug therapy | CPT/HCPCS: 99212 ==

== ENCOUNTER 2023-07-12 10:43 | Outpatient (AMB) | payer OTHER, SELFPAY ==
--- NOTE | 2023-07-12 11:34 | A.OFFPC_ITS ---
Vital Signs 07/12/23 11:40 Height 5 ft 4 in Weight 181 lb BMI 31.1 BP 102/74 Blood Pressure Location Rt brachial Position Sitting Respiration 12 Pulse 77 Pulse Source Pulse Oximeter Temp 98 F Temp Source Oral Pulse Oximetry (%) 98 Oxygen Delivery Method Room Air Intake Visit Reasons: [facility] WORKER/PE- NEEDS PHQ9 Intake Note: New patient visit. Anxiety. Request labs for thyroid ect. Referral to OT for her wrists. [facility]. 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 Required: No Is last menstrual period known: Yes Last menstrual period: 07/17/22 Allergies house dust Allergy (Verified 07/12/23 12:31) sneezing congestion headache raw apple Adverse Reaction (Intermediate, Uncoded 01/18/23 13:24) itching raw tree nut Adverse Reaction (Intermediate, Uncoded 01/18/23 13:24) Itching Medication List - Last Reconciled 07/12/23 by Nakia Mon, RN HOUSE SUPERVISOR- albuterol sulfate 90 mcg/actuation (ProAir HFA) inhalation levothyroxine 50 mcg PO DAILY loratadine 10 mg PO DAILY PRN [magnesium PO] montelukast 10 mg PO DAILY [multivitamin PO] [vitamin C PO] Tobacco use date assessed: 07/12/23 Dental Screening Dental Screen Date: 07/12/23 Did you have a dental visit in the last 12 months?: Yes Did you have a dental problem in the last 6 months where you did not have access to dental care?: No Was dental information given to patient?: Patient has dentist HPI HPI Comments History of Present Illness Details 27-year-old female with asthma, vitamin- D deficiency, acne, allergic rhinitis, generalized anxiety disorder, obesity, vitamin B1 deficiency, vitamin- A deficiency, thyroid nodule, hypothyroidism Specialists Bariatric surgery Endocrinology Rheumatology 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 Has appt w/ VICE PRESIDENT AND PORTFOLIO MANAGER 10/2023 Here today to establish care for CPE. thyroid US 07/28/2020 and this revealed a small heterogenous thyroid, consistent with miriam's disease. No true nodules were visualized, only pseudonodule Normal TSH and free T4 03/26/2023 Otherwise full lab panel done 01/17/2023 within normal limits bilat wrist pain, lots of work w/ her arms and hands. Interested in OT. MARVIN - hard time finding a job. Interested in counseling. Using herbal modalities to help. Denies SI/HI. [facility] Medical History (Updated 07/12/23 @ 12:49 [facility] BMI 33.0-33.9,adult Vitamin B1 deficiency Vitamin A deficiency Vitamin D deficiency Bilateral hand pain Right ankle pain Ingrown nail Hypothyroidism (acquired) Thyroid nodule Surgical History Hx of wisdom tooth extraction No pertinent past surgical history Family History Father No problems noted. Mother Hypothyroidism Brother No problems noted. 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 1. Little interest or pleasure in doing things: several days 2. Feeling down, depressed, or hopeless: several days 3. Trouble falling or staying asleep, or sleeping too much: nearly every day 4. Feeling tired or having little energy: several days 5. Poor appetite or overeating: not at all 6. Feeling bad about yourself - or that you are a failure or have let yourself or your family down: several days 7. Trouble concentrating on things, such as reading the newspaper or watching television: several days 8. Moving or speaking so slowly that other people could have noticed. Or the opposite - being so fidgety or restless that you have been moving around a lot more than usual: not at all 9. Thoughts that you would be better off or of hurting yourself in some way: not at all Total score: 8 Depression Screening Interpretation: Positive Depression Screening Follow-up: Existing condition Depression Screening Done: Yes 37935 - PHQ-9 Billing: Yes Source: Developed by Drs. Brice Freeman, Saamra Dominique, Yuniel Griffith and colleagues, with an educational george from [employer] Thrive Questionnaire Date Thrive assessed: 07/12/23 I am a: Patient What is your living situation today?: I have a steady place to live Within the past 12 months, did the food you bought not last and you didn't have the money to get more?: Never true Within the past 12 months, did you worry whether your food would run out before you got money to buy more?: Never true Do you have trouble paying for medicines?: No Do you have trouble getting transportation to medical appointments?: No Do you have trouble paying your heating and electricity bill?: No Do you have trouble taking care of your child, family member or friend?: No Do you have trouble with day-to-day activities such as bathing, preparing meals, shopping, managing finances, etc.?: No Are you currently unemployed and looking for a job?: No Are you interested in more education?: No Please select the resources that you would like help with: None Currently or been in a relationship where the following occur: no concerns reported THRIVE Score: 0 AUDIT C Alcohol Use Questionnaire (AUDIT-C) 1. How often do you have a drink containing alcohol?: Never 3. How often do you have six or more drinks on one occasion?: Never Total Score: 0 Score Reviewed/Action Taken: Yes MARVIN-7 AMB Questionnaire MARVIN-7 Date MARVIN - 7 assessed: 01/17/23 Feeling nervous, anxious, or on edge: 2 = More than half the days Not being able to stop or control worryin = Several days Worrying too much about different things: 1 = Several days Trouble relaxin = More than half the days Being so restless that it is hard to sit still: 0 = Not at all Becoming easily annoyed or irritable: 1 = Several days Feeling afraid as if something awful might happen: 1 = Several days Total MARVIN-7 score (0-4 normal; 5-9 mild; 10-14 moderate; 15-21 severe): 8 Source: Developed by Drs. Brice Freeman, Samara Dominique, Yuniel Griffith and colleagues, with an educational george from [employer] MARVIN-7 Assessment Billing MARVIN-7 Assessment Tool: MARVIN-7 Assessment 05925 ACT Questionnaire In the past 4 weeks, how much of the time did your asthma keep you from getting as much done at work, school or at home?: None of the time During the past 4 weeks, how often have you had shortness of breath?: Not at all During the past 4 weeks, how often did your asthma symptoms wake you up at night or earlier than usual in the morning?: Not at all During the past 4 weeks, how often have you had to use your rescue inhaler or nebulizer medication?: Not at all How would you rate your asthma control during the past 4 weeks?: Completely c ontrolled ACT Interpretation: Negative Score: 25 Review of Systems Const Details: Constitutional: Denies fever. Skin: Denies rash. Eye: Denies eye pain. ENMT: Denies sore throat and nasal congestion. Respiratory: Denies shortness of breath and cough. Gastrointestinal: Denies nausea, vomiting or abdominal pain. Cardiovascular: Denies chest pain and syncope. Genitourinary: Denies dysuria. Musculoskeletal: Denies back pain and extremity pain. Neurologic: Denies headaches, confusion, and weakness. Psychiatric: Denies suicidal thoughts and substance abuse. Allergy/ Immunologic: Denies impaired immunity. Physical exam (Primary Care) Vital Signs: Last Vital Signs Temp 98 F 07/12/23 11:40 Pulse 77 07/12/23 11:40 Resp 12 07/12/23 11:40 BP 102/74 07/12/23 11:40 Pulse Ox 98 07/12/23 11:40 Oxygen Delivery Method Room Air 07/12/23 11:40 BMI result Body Mass Index 31.1 BMI Assessment/Plan discussion: High BMI High, discussed plan: lifestyle Tobacco/Smoking Status: Tobacco use Status Tobacco use date assessed 07/12/23 07/12/23 11:46 Patient Tobacco Use Status Never used Tobacco 07/12/23 11:46 e-Cigarette/Vaping Use Never Used 07/12/23 11:46 PHQ-9: PHQ-9 Score PHQ-9: Total score 8 07/12/23 11:46 Depression Screening Interpretation: Positive Depression Screening Follow-up: Existing condition Thrive Assessment: Date of Thrive Assessment Date Thrive assessed 07/12/23 07/12/23 11:46 Currently or been in a relationship where the following occur: no concerns reported Const Other: General: Well developed, well nourished, in no acute distress. Appears stated age. Head: Normocephalic, atraumatic. Eyes: Pupils are equal, round and reactive to light and accommodation. Conjunctivae are clear. Vision grossly normal. Ears: TMs clear AU, EACS WNL Nose: Patent, without discharge. Mouth: There are no ulcers or lesions noted. No inflammation, no post nasal drip, no plaques nor exudates. Neck: Supple, no adenopathy, nodular thyroid, trachea midline Lungs: Clear to auscultation bilaterally. No rales, rhonchi or wheeze noted. Good air flow in all gann. Heart: Regular rate and rhythm. No murmurs, click, rubs or gallops are noted. Abdomen: Bowel sounds present in all quadrants. The abdomen is soft, nontender, with no masses or organomegaly noted. No hernias are noted. Musculoskeletal: Joints are nontender, without swelling, redness, or effusions. Range of motion is observed to be normal. Pulses: Peripheral pulses are equal and palpable bilaterally. Extremities: No clubbing, cyanosis nor edema is noted. Neurologic: Gait and station normal. Cranial Nerves 2-12 intact. Motor strength grossly symmetrical and intact. No sensory loss. Balance normal. Skin: No rashes, ulcers, or lesions noted. Turgor is good. Skin color is good. Hair and nails are without abnormalities. Psych: Normal eye contact, affect and mood appropriate, and normal interactions. Patient is alert and appropriate to context. Extremities: No clubbing, cyanosis or edema. Assessment and Plan Assessment & Plan (1) Normal physical exam: Code(s): Z00.00 - Encounter for general adult medical examination without abnormal findings (2) Asthma: Comment: Well controlled with p.r.n. Crys. Continue Code(s): J45.909 - Unspecified asthma, uncomplicated Qualifiers: Asthma severity: mild Asthma persistence: intermittent Asthma complication type: uncomplicated Qualified Code(s): J45.20 - Mild intermittent asthma, uncomplicated (3) Obesity (BMI 30.0-34.9): Comment: Lifestyle modifications encouraged BMI greater than 31 Code(s): E66.9 - Obesity, unspecified (4) Vitamin B1 deficiency: Comment: We will update labs today and treat as needed. Code(s): E51.9 - Thiamine deficiency, unspecified (5) Vitamin A deficiency: Comment: We will update labs today and treat as needed. Code(s): E50.9 - Vitamin A deficiency, unspecified (6) Vitamin D deficiency: Comment: We will update labs today and treat as needed. Code(s): E55.9 - Vitamin D deficiency, unspecified (7) Hypothyroidism (acquired): Comment: We will check labs. At this time continue levothyroxine supplement. Cleared from future follow up by endocrinology Code(s): E03.9 - Hypothyroidism, unspecified (8) Thyroid nodule: Comment: thyroid US 07/28/2020 and this revealed a small heterogenous thyroid, consistent with miriam's disease. No true nodules were visualized, only pseudonodule Normal TSH and free T4 03/26/2023 No further imaging needed Code(s): E04.1 - Nontoxic single thyroid nodule (9) Bilateral wrist pain: Comment: Refer to OT for treatment Code(s): M25.531 - Pain in right wrist; M25.532 - Pain in left wrist (10) MARVIN (generalized anxiety disorder): Comment: Declines medications. Uses herbal supplements. Referred to counseling. Code(s): F41.1 - Generalized anxiety disorder Orders: Orders 2 Vitamin D 1,25 dihydroxy Today E03.9 - Hypothyroidism, unspecified, E50.9 - Vitamin A deficiency, unspecified, E51.9 - Thiamine deficiency, unspecified, E55.9 - Vitamin D deficiency, unspecified, E66.9 - Obesity, unspecified, Z00.00 - Encounter for general adult medical examination without abnormal findings Complete Blood Count no Diff Today E03.9 - Hypothyroidism, unspecified, E50.9 - Vitamin A deficiency, unspecified, E51.9 - Thiamine deficiency, unspecified, E55.9 - Vitamin D deficiency, unspecified, E66.9 - Obesity, unspecified, Z00.00 - Encounter for general adult medical examination without abnormal findings Vitamin B1 Today E50.9 - Vitamin A deficiency, unspecified, E51.9 - Thiamine deficiency, unspecified Vitamin A Today E50.9 - Vitamin A deficiency, unspecified, E51.9 - Thiamine deficiency, unspecified OT Evaluation and Treatment Today M25.531 - Pain in right wrist, M25.532 - Pain in left wrist Comprehensive Met. Panel Today E03.9 - Hypothyroidism, unspecified, E50.9 - Vitamin A deficiency, unspecified, E51.9 - Thiamine deficiency, unspecified, E55.9 - Vitamin D deficiency, unspecified, E66.9 - Obesity, unspecified, Z00.00 - Encounter for general adult medical examination without abnormal findings Hemoglobin A1c Today E03.9 - Hypothyroidism, unspecified, E50.9 - Vitamin A deficiency, unspecified, E51.9 - Thiamine deficiency, unspecified, E55.9 - Vitamin D deficiency, unspecified, E66.9 - Obesity, unspecified, Z00.00 - Encounter for general adult medical examination without abnormal findings IRON PROFILE Today E03.9 - Hypothyroidism, unspecified, E50.9 - Vitamin A deficiency, unspecified, E51.9 - Thiamine deficiency, unspecified, E55.9 - Vitamin D deficiency, unspecified, E66.9 - Obesity, unspecified, Z00.00 - Encounter for general adult medical examination without abnormal findings LDL Cholesterol Direct Today E03.9 - Hypothyroidism, unspecified, E50.9 - Vitamin A deficiency, unspecified, E51.9 - Thiamine deficiency, unspecified, E55.9 - Vitamin D deficiency, unspecified, E66.9 - Obesity, unspecified, Z00.00 - Encounter for general adult medical examination without abnormal findings Microalbumin, Random (w Creat) Today E03.9 - Hypothyroidism, unspecified, E50.9 - Vitamin A deficiency, unspecified, E51.9 - Thiamine deficiency, unspecified, E55.9 - Vitamin D deficiency, unspecified, E66.9 - Obesity, unspecified, Z00.00 - Encounter for general adult medical examination without abnormal findings TSH reflex Free T4 Today E03.9 - Hypothyroidism, unspecified, E50.9 - Vitamin A deficiency, unspecified, E51.9 - Thiamine deficiency, unspecified, E55.9 - Vitamin D deficiency, unspecified, E66.9 - Obesity, unspecified, Z00.00 - Encounter for general adult medical examination without abnormal findings Referrals Counseling Referral F41.1 - Generalized anxiety disorder Patient Instructions: Return to office in year for complete physical exam, sooner as needed. Health screenings for women ages 18 to 39 You should visit your health care provider from time to time, even if you are healthy. The purpose of these visits is to: Screen for medical issues Assess your risk for future medical problems Encourage a healthy lifestyle Update vaccinations and other preventive care services Help you get to know your provider in case of an illness Information Even if you feel fine, you should still see your provider for regular checkups. These visits can help you avoid problems in the future. For example, the only way to find out if you have high blood pressure is to have it checked regularly. High blood sugar and high cholesterol levels also may not have any symptoms in the early stages. A simple blood test can check for these conditions. There are specific times when you should see your provider or receive specific health screenings. The [place] Preventive Services Task Force publishes a list of recommended screenings. Below are screening guidelines for women ages 18 to 39. BLOOD PRESSURE SCREENING Your blood pressure should be checked at least once every 3 to 5 years if: Your blood pressure is in the normal range (top number less than 120 mm Hg and bottom number less than 80 mm Hg) You don't have risk factors for high blood pressure Ask your provider if you need your blood pressure checked more often if: The top number is 120 to 129 mm Hg or the bottom number is 70 to 79 mm Hg You have diabetes, heart disease, kidney problems, are overweight, or have certain other health conditions You have a first-degree relative with high blood pressure You are Black You had high blood pressure during a If the top number is 130 mm Hg or greater or the bottom number is 80 mm Hg or greater, this is considered stage 1 hypertension. Schedule an appointment with your provider to learn how you can reduce your blood pressure. Watch for blood pressure screenings in your area. Ask your provider if you can stop in to have your blood pressure checked. BREAST CANCER SCREENING Experts do not agree about the benefits of breast self-exams in finding breast cancer or saving lives. Talk to your provider about what is best for you. A screening mammogram is not recommended for most women under age 40. Your provider may discuss and recommend mammograms, MRI scans, or ultrasounds if you have an increased risk for breast cancer, such as: A mother or sister who had breast cancer at a young age (most often starting screening earlier than the age the close relative was diagnosed) You carry a high-risk genetic marker CERVICAL CANCER SCREENING Cervical cancer screening should start at age 21 years unless your provider advises otherwise. After the first test: Women ages 21 through 29 should have a Pap test every 3 years. Exoprts do not agree on whether HPV testing is recommended for this age group. Women ages 30 through 65 should be screened with either a Pap test every 3 years or the HPV test every 5 years or both tests every 5 years (called cotesting ). Women who have been treated for precancer (cervical dysplasia) should continue to have Pap tests for 20 years after treatment or until age 65, whichever is longer. If you have had your uterus and cervix removed (total hysterectomy), and you have not been diagnosed with cervical cancer or precancer (high grade cervical neoplasia), you do not need cervical cancer screening. CHOLESTEROL SCREENING Cholesterol screening should begin at: Age 45 for women with no known risk factors for coronary heart disease Age 20 for women with known risk factors for coronary heart disease Repeat cholesterol screening should take place: Every 5 years for women with normal cholesterol levels More often if changes occur in lifestyle (including weight gain and diet) More often if you have diabetes, heart disease, kidney problems, or certain other conditions DIABETES SCREENING You should be screened for diabetes starting at age 35 and then repeated every 3 years if you have no risk factors for diabetes. Screening may need to start earlier and be repeated more often if you have other risk factors for diabetes, such as: You have a first degree relative with diabetes. You are overweight or have obesity. You have high blood pressure, prediabetes, or a history of heart disease. Screening for diabetes should be done if you are planning to become and you are overweight and have other risk factors such as high blood pressure. DENTAL EXAM Go to the dentist once or twice every year for an exam and cleaning. Your dentist will evaluate if you need more frequent visits. EYE EXAM Have an eye exam every 5 to 10 years before age 40. If you have vision problems, have an eye exam every 2 years or more often if recommended by your provider. You should have an eye exam that includes an examination of your retina (back of your eye) at least every year if you have diabetes. IMMUNIZATIONS Commonly needed vaccines include: Flu shot: get one every year. COVID-19 vaccine: ask your provider what is best for you. Tetanus-diphtheria and acellular pertussis (Tdap) vaccine: have one at or after age 19 as one of your tetanus-diphtheria vaccines if you did not receive it as an adolescent. Tetanus-diphtheria: have a booster (or Tdap) every 10 years. Varicella vaccine: receive 2 doses if you never had chickenpox or the varicella vaccine. Hepatitis B vaccine: receive 2, 3, or 4 doses, depending on your exact circumstances. Measles, mumps, and rubella (MMR) vaccine: receive 1 to 2 doses if you are not already immune to MMR. Your provider can tell you if you are immune. Ask your provider about the human papillomavirus (HPV) vaccine if: You have not received the HPV vaccine in the past You have not completed the full vaccine series (you should catch up on this shot) Ask your provider if you should receive other immunizations if you have certain health problems that increase your risk for some diseases such as pneumonia. INFECTIOUS DISEASE SCREENING Women who are sexually active should be screened for chlamydia and gonorrhea up until age 25. Women 25 years and older should be screened for chlamydia and gonorrhea if at high risk. Screening for hepatitis C: All adults ages 18 to 79 should get a one-time test for hepatitis C. people should be screened at every . Screening for human immunodeficiency virus (HIV): All people ages 15 to 65 should get a one-time test for HIV. Depending on your lifestyle and medical history, you may also need to be screened for infections such as syphilis and HIV, as well as other infections. PHYSICAL EXAM All adults should visit their provider from time to time, even if they are healthy. The purpose of these visits is to: Screen for disease Assess your risk of future medical problems Encourage a healthy lifestyle Update your vaccinations and other preventive care services Maintain a relationship with a provider in case of an illness Your height, weight, and BMI should be checked at every exam. During your exam, your provider may ask you about: Depression and anxiety Diet and exercise Alcohol and tobacco use Safety issues, such as using seat belts, smoke detectors, and intimate partner violence Your medicines and risk for interactions SKIN SELF-EXAM Your provider may check your skin for signs of skin cancer, especially if you're at high risk, such as if you: Have had skin cancer before Have close relatives with skin cancer Have a weakened immune system OTHER SCREENING Talk with your provider about colon cancer screening if you have a strong family history of colon cancer or polyps, or if you have had inflammatory bowel disease or polyps yourself. Routine bone density screening of women under 40 is not recommended. Review Declined Pap Smear: 07/12/23 Declined TDap/Td: 07/12/23 Coding Level of Care Code Est Pt Prev Care 18-39y(72188) Diagnoses Normal physical exam Z00.00 Mild intermittent asthma without complication J45.20 Asthma severity: mild Asthma persistence: intermittent Asthma complication type: uncomplicated Obesity (BMI 30.0-34.9) E66.9 Vitamin B1 deficiency E51.9 Vitamin A deficiency E50.9 Vitamin D deficiency E55.9 Hypothyroidism (acquired) E03.9 Thyroid nodule E04.1 Bilateral wrist pain M25.531; M25.532 MARVIN (generalized anxiety disorder) F41.1 Additional Codes MARVIN-7 Assessment Billing - MARVIN-7 Assessment Tool: MARVIN-7 Assessment [id number] ([id number])
[2023-07-12 11:40] VITALS: BP 102/74; PULSE 77; RESP 12; TEMP 36.6; O2SAT 98; BMI 31.1
== END 2023-07-12 13:05 | disposition home or self-care (01) ==
PROVIDERS: PCP Hospitalist; Visit Provider Nurse Practitioner Family
DX: Z00.00 Encounter for general adult medical examination without abnormal findings (principal); J45.20 Mild intermittent asthma, uncomplicated; Z68.31 Body mass index [BMI] 31.0-31.9, adult; E66.9 Obesity, unspecified; E51.9 Thiamine deficiency, unspecified; E50.9 Vitamin A deficiency, unspecified; E55.9 Vitamin D deficiency, unspecified; E03.9 Hypothyroidism, unspecified; E04.1 Nontoxic single thyroid nodule; M25.531 Pain in right wrist; M25.532 Pain in left wrist; F41.1 Generalized anxiety disorder
CPT/HCPCS: 99395

== ENCOUNTER 2023-07-12 12:48 | Outpatient (REF) | payer OTHER, SELFPAY ==
[2023-07-12 13:37] LABS: Hemoglobin 14.1 g/dl (12.0-16.0); Mean Corpuscular HGB Conc 34.4 g/dl (31.0-35.0); Mean Corpuscular Hemoglobin 30.7 pg (27.0-33.0); Mean Corpuscular Volume 89.3 fL (80.0-98.0); Mean Platelet Volume 10.4 fL (9.4-12.3); Platelet Count 234 X10*3/uL (160-400); Red Blood Count 4.59 X10*6/uL (4.20-5.50); Red Cell Distribution Width 12.3 % (11.0-16.0); White Blood Count 8.7 X10*3/uL (4.8-10.8)
[2023-07-12 13:44] LABS: Estimated Average Glucose 91 mg/dL; Hemoglobin A1c % 4.8 % (<6.0)
[2023-07-12 14:51] LABS: Alanine Aminotransferase 16 U/L (0-31); Albumin Level 4.5 g/dL (3.5-5.0); Alkaline Phosphatase 59 U/L (39-117); Anion Gap 13 (12-20); Aspartate Amino Transferase 16 U/L (5-31); Blood Urea Nitrogen 10 mg/dL (9-16); Calcium 9.5 mg/dL (8.4-10.2); Carbon Dioxide 24 mmol/L (22-29); Chloride 107 mmol/L (96-108); Estimated Glomerular Filt Rate > 60; Glucose Random 85 mg/dL (60-115); Iron 115 mcg/dL (30-160); Percent Iron Saturation 39 % (15-50); Potassium 3.8 mmol/L (3.3-5.1); Sodium 140 mmol/L (135-145); Total Iron Binding Capacity 294 mcg/dL (228-428); Total Protein 7.4 g/dL (6.5-8.0); Unsaturated Iron Binding 179 ug/dL
[2023-07-12 15:00] LABS: TSH reflex Free T4 1.74 uIU/mL (0.32-4.0)
[2023-07-12 15:27] LABS: Creatinine Urine 23.04 mg/dL
[2023-07-13 13:14] LABS: LDL Cholesterol Direct 85 mg/dL (<100)
[2023-07-17 18:38] LABS: Vitamin A 40 mcg/dL (38-98)
[2023-07-18 15:37] LABS: Vitamin B1 12 nmol/L (8-30)
[2023-07-20 15:33] LABS: VITAMIN D (1,25 OH) D3 35 pg/mL; Vit D (1,25-Dihydroxy) Total 35 pg/mL (18-72); Vitamin D (1,25 OH) D2 <8 pg/mL
== END 2023-07-12 12:49 | disposition home or self-care (01) ==
LOC: HO.WFDLDS 12:48
PROVIDERS: Visit Provider Nurse Practitioner Family
DX: Z00.00 Encounter for general adult medical examination without abnormal findings (principal); E66.9 Obesity, unspecified; E51.9 Thiamine deficiency, unspecified; E50.9 Vitamin A deficiency, unspecified; E55.9 Vitamin D deficiency, unspecified; E03.9 Hypothyroidism, unspecified
CPT/HCPCS: 36415; 80053; 82043; 82570; 82652; 83036; 83540; 83721; 84425; 84443; 84590; 85027

== ENCOUNTER 2023-12-24 08:30 | Outpatient (REF) | payer OTHER, SELFPAY ==
[2023-12-24 11:21] LABS: Free T4 (Free Thyroxine) 1.11 ng/dL (0.71-1.85); Thyroid Stimulating Hormone 1.63 uIU/mL (0.32-4.0)
== END 2023-12-24 08:31 | disposition home or self-care (01) ==
LOC: HO.LAB 08:30
PROVIDERS: PCP Nurse Practitioner Family; Visit Provider Internal Medicine Endocrinology, Diabetes & Metabolism
DX: E03.9 Hypothyroidism, unspecified (principal)
CPT/HCPCS: 36415; 84439; 84443; 99212

== ENCOUNTER 2023-12-24 08:30 | Outpatient (AMB) | payer OTHER, SELFPAY ==
--- NOTE | 2023-12-24 08:43 | A.OFFVIS_ITS ---
Vital Signs 12/24/23 08:44 Height 5 ft 4 in Weight 182 lb 15.739 oz BMI 31.4 BP 108/68 Blood Pressure Location Rt brachial Position Sitting Pulse 90 Pulse Source Pulse Oximeter Intake Visit Reasons: Hypothyroidism/confirmed Intake Note: Patient present today for Hypothyroidism follow up visit: Tax Auditor Required: No Accompanied by: Self / Same As Patient Allergies house dust Allergy (Verified 12/24/23 08:47) sneezing congestion headache raw apple Adverse Reaction (Intermediate, Uncoded 12/24/23 08:47) itching raw tree nut Adverse Reaction (Intermediate, Uncoded 12/24/23 08:47) Itching Medication List - Last Reconciled 12/24/23 by Brice Barksdale MD albuterol sulfate 90 mcg/actuation (ProAir HFA) inhalation levothyroxine 50 mcg PO DAILY loratadine 10 mg PO DAILY PRN [magnesium PO] montelukast 10 mg PO DAILY [multivitamin PO] [vitamin C PO] HPI Comments Details: 28 YO Female with no significant PMHx who is seen in F/U for hypothyroidism.. First diagnosed with Hypothyroidism September 2019 with labs revealing a TSH of 4.63. Currently using Levothyroxine 25 mcg PO daily. She has not yet repeated her TFTs. I repeated her thyroid US 07/28/2020 and this revealed a small heterogenous thyroid, consistent with miriam's disease. No true nodules were visualized, only pseudonodules. Reports feeling well today with no complaints. Thyroid US: 03/07/2020 Right Thyroid Lobe: 4.1 x 1.0 x 1.4 cm, volume 3.1 mL. Previously 4.3 x 0.9 x 1.4 cm, volume 2.7 mL. Parenchyma: The gland echotexture is homogeneous. Thyroid vascularity is normal. Left Thyroid Lobe: 4.4 x 1.0 x 1.3 cm, volume 2.8 mL. Previously 4.3 x 0.9 x 1.4 cm, volume 2.6 mL. Parenchyma: The gland echotexture is homogeneous. Thyroid vascularity is normal. Isthmus: 0.2 cm in maximum AP dimension. Previously 0.2 cm. RIGHT THYROID LOBE: There are 2 nodules seen. 1. Location: Midpole. Size: 0.4 x 0.3 x 0.4 cm. Previous: 0.4 x 0.3 x 0.4 cm. Nodule characteristics: Hypoechoic, smoothly marginated with no intranodular flow. 2. Location: Lower pole. Size: 0.5 x 0.3 x 0.4 cm. Previous: 0.9 x 0.5 x 0.6 cm. Nodule characteristics: Hypoechoic, irregular margins with intranodular flow. ISTHMUS: No nodules. LEFT THYROID LOBE: No nodules. NODES: No lymphadenopathy is seen in the tissue surrounding the thyroid gland. [facility] Medical History (Updated 07/12/23 @ 12:49 by Nakia Mon, [facility]-) BMI 33.0-33.9,adult Vitamin B1 deficiency Vitamin A deficiency Vitamin D deficiency Bilateral hand pain Right ankle pain Ingrown nail Hypothyroidism (acquired) Thyroid nodule Surgical History Hx of wisdom tooth extraction No pertinent past surgical history Family History Father No problems noted. Mother Hypothyroidism Brother No problems noted. 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 There are no thyroid nodules palpated Assessment & Plan Assessment & Plan (1) Hypothyroidism (acquired): Comment: We will check labs. At this time continue levothyroxine supplement. 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 She appears to be clinically and biochemically euthyroid. Plan is to check TSH and free T4 At this point, if thyroid functions normal patient can follow up with the primary care provider and be returned back to endocrinology as needed. I did recommend she talk to her primary care provider perhaps by getting a sleep study as she reports poor sleep quality and that could be responsible for some of her symptoms Orders: Orders Free T4 (Free Thyroxine) Today E03.9 - Hypothyroidism, unspecified Thyroid Stimulating Hormone Today E03.9 - Hypothyroidism, unspecified Coding Level of Care Code Est Pt Level 3 (93580) Diagnoses Hypothyroidism (acquired) E03.9
[2023-12-24 08:44] VITALS: BP 108/68; PULSE 90; BMI 31.4
== END 2023-12-24 09:04 | disposition home or self-care (01) ==
PROVIDERS: PCP Hospitalist; Visit Provider Internal Medicine Endocrinology, Diabetes & Metabolism
DX: E03.9 Hypothyroidism, unspecified (principal)
CPT/HCPCS: 99213

== ENCOUNTER 2024-01-02 16:03 | Outpatient (AMB) | payer OTHER, SELFPAY ==
--- NOTE | 2024-01-02 15:28 | A.OFFPC_ITS ---
Intake Visit Reasons: tired/blood work req Allergies house dust Allergy (Verified 01/02/24 15:28) sneezing congestion headache raw apple Adverse Reaction (Intermediate, Uncoded 12/24/23 08:47) itching raw tree nut Adverse Reaction (Intermediate, Uncoded 12/24/23 08:47) Itching Medication List - Last Reconciled 01/02/24 by Nakia Mon, MECHANICAL ENGINEER- albuterol sulfate 90 mcg/actuation (ProAir HFA) inhalation levothyroxine 50 mcg PO DAILY loratadine 10 mg PO DAILY PRN [magnesium PO] montelukast 10 mg PO DAILY [multivitamin PO] [vitamin C PO] Tobacco use date assessed: 07/12/23 Dental Screening Dental Screen Date: 07/12/23 HPI HPI Comments History of Present Illness Details 28-year-old female with asthma, vitamin- D deficiency, acne, allergic rhinitis, generalized anxiety disorder, obesity, vitamin B1 deficiency, vitamin- A deficiency, thyroid nodule, hypothyroidism Specialists Bariatric surgery Endocrinology Rheumatology Patient Support Assistant Health maintenance Pap declines. Has appt w/ SOFTWARE TOOLS DEVELOPER 10/2023 Telehealth visit today for feeling tired + wt gain A few weeks ago had Endo appt for eval of this. Note reviewed along w/ labs. After that, thought perhaps it would be nice to do a blood test to see where everything such as vitamin levels are. Hx of Vitamin A, D and B low. Wonders if Fall is playing a part Anxiety is worse. Was not able to pursue counseling d/t work schedule. She is willing to try again. Denies SI/HI Terrible sleep, excessive daytime fatigue. Discussed sleep study w/ Endo. She is willing to pursue. Has pain in bilat hands; referred to OT previously but order sent to wrong facility. Needs hands to work would like OT order at [facility] in [place] Plan Refer back to counseling. Discussed medications and does not wish to take medications. Would like to do herbal teas and relaxation techniques. Check labs & sleep study to eval her sx. OT order placed today This note is constructed using voice recognition software. While every effort has been made to ensure accuracy in licensed clinician, still errors may have been included Sometimes, these errors may affect the content or meaning of the given sentence . Total time spent caring for the patient today was 18 minutes. This includes time spent before the visit reviewing the chart, time spent during the visit, and time spent after the visit on documentation [facility] Medical History BMI 33.0-33.9,adult Vitamin B1 deficiency Vitamin A deficiency Vitamin D deficiency Bilateral hand pain Right ankle pain Ingrown nail Hypothyroidism (acquired) Thyroid nodule Surgical History Hx of wisdom tooth extraction No pertinent past surgical history Family History Father No problems noted. Mother Hypothyroidism Brother No problems noted. 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 Brice Freeman, Samara Dominique, Yuniel Griffith and colleagues, with an educational george from [employer]. Physical exam (Primary Care) Tobacco/Smoking Status: Tobacco use Status Tobacco use date assessed 07/12/23 12/23/23 09:39 Patient Tobacco Use Status Never used Tobacco 12/23/23 09:39 e-Cigarette/Vaping Use Never Used 12/23/23 09:39 Thrive Assessment: Date of Thrive Assessment Date Thrive assessed 07/12/23 12/23/23 09:39 Telehealth Telehealth Telehealth Platform: [facility] Location of provider rendering services: practice address Location of patient: address on file Patient Identification confirmed using: Name, : Yes Telehealth method: voice only Patient verbally consented to treatment: Yes Patient verbally consented to billing insurance company: Yes Patient informed of any privacy concerns related to visit: Yes Results Reviewed Results Reviewed: RUN: 01/02/24 1528 PAGE 1 [facility] [address] [place] [id number] Airflight Attendants Supervisor: Braydon Husain M.D. Specimen Inquiry Name: Nciole Caal Age/Sex: 28/F : 1995 Unit#: [id number] Attend Dr: Brice Barksdale MD Re12/24/23 Status: DEP REF Location: [facility] isch: SPEC : [id number] LUIZ: 12/24/23 STATUS: COMP REQ : [id number] RECD: 12/24/[address] [facility] [address]: Brice Barksdale MD COMP: 12/24/23 ENTERED: 12/24/23 [facility] DR: Nakia Mon [facility] ORDERED: Free T4, TSH Test Result Flag Reference Free T4 1.11 0.71-1.85 ng/dL TSH 3rd Gen. 1.63 0.32-4.0 uIU/mL TSH 3rd Generation ([facility]) END OF REPORT Coding Level of Care Code Tele Est Pt Level 2 (69743) Complex EM visit Add On G2211 Diagnoses MARVIN (generalized anxiety disorder) F41.1 Vitamin D deficiency E55.9 Vitamin A deficiency E50.9 Vitamin B1 deficiency E51.9 Daytime somnolence R40.0 Bilateral hand pain M79.641; M79.642 Assessment & Plan Assessment & Plan (1) MARVIN (generalized anxiety disorder): Comment: Declines medications. Uses herbal supplements. Referred to counseling. Code(s): F41.1 - Generalized anxiety disorder Category: Medical (2) Vitamin D deficiency: Comment: We will update labs today and treat as needed. Code(s): E55.9 - Vitamin D deficiency, unspecified Category: Medical Plan: . (3) Vitamin A deficiency: Comment: We will update labs today and treat as needed. Code(s): E50.9 - Vitamin A deficiency, unspecified Category: Medical Plan: . (4) Vitamin B1 deficiency: Comment: We will update labs today and treat as needed. Code(s): E51.9 - Thiamine deficiency, unspecified Category: Medical Plan: . (5) Daytime somnolence: Code(s): R40.0 - Somnolence Category: Medical Plan: . (6) Bilateral hand pain: Comment: . Code(s): M79.641 - Pain in right hand; M79.642 - Pain in left hand Category: Medical Plan . Orders: Orders Complete Blood Count no Diff Today E50.9 - Vitamin A deficiency, unspecified, E51.9 - Thiamine deficiency, unspecified, E55.9 - Vitamin D deficiency, unspecified Comprehensive Met. Panel Today E50.9 - Vitamin A deficiency, unspecified, E51.9 - Thiamine deficiency, unspecified, E55.9 - Vitamin D deficiency, unspecified IRON PROFILE Today E50.9 - Vitamin A deficiency, unspecified, E51.9 - Thiamine deficiency, unspecified, E55.9 - Vitamin D deficiency, unspecified Vitamin D 25-OH Total Today E50.9 - Vitamin A deficiency, unspecified, E51.9 - Thiamine deficiency, unspecified, E55.9 - Vitamin D deficiency, unspecified Vitamin B1 Today E50.9 - Vitamin A deficiency, unspecified, E51.9 - Thiamine deficiency, unspecified, E55.9 - Vitamin D deficiency, unspecified Vitamin A Today E50.9 - Vitamin A deficiency, unspecified, E51.9 - Thiamine deficiency, unspecified, E55.9 - Vitamin D deficiency, unspecified Vitamin B12 and Folate Today E50.9 - Vitamin A deficiency, unspecified, E51.9 - Thiamine deficiency, unspecified, E55.9 - Vitamin D deficiency, unspecified RT home sleep study Today R40.0 - Somnolence OT Evaluation and Treatment Today M79.641 - Pain in right hand, M79.642 - Pain in left hand Referrals Counseling Referral F41.1 - Generalized anxiety disorder
== END 2024-01-02 16:45 | disposition home or self-care (01) ==
LOC: HO.HMCFM 16:03
PROVIDERS: PCP Nurse Practitioner Family; Visit Provider Nurse Practitioner Family
DX: F41.1 Generalized anxiety disorder (principal); E55.9 Vitamin D deficiency, unspecified; E50.9 Vitamin A deficiency, unspecified; E51.9 Thiamine deficiency, unspecified; R40.0 Somnolence; M79.641 Pain in right hand; M79.642 Pain in left hand

== ENCOUNTER → 2024-01-02 16:03 | Outpatient (BNVA) | payer OTHER, SELFPAY | PROVIDERS: PCP Nurse Practitioner Family; Visit Provider Nurse Practitioner Family | DX: F41.1 Generalized anxiety disorder (principal); E51.9 Thiamine deficiency, unspecified; E50.9 Vitamin A deficiency, unspecified; E55.9 Vitamin D deficiency, unspecified; R40.0 Somnolence; M79.641 Pain in right hand; M79.642 Pain in left hand ==

== ENCOUNTER 2024-01-10 08:48 | Outpatient (REF) | payer OTHER, SELFPAY ==
[2024-01-10 11:50] LABS: Hematocrit 40.3 % (37.0-47.0); Hemoglobin 13.9 g/dl (12.0-16.0); Mean Corpuscular HGB Conc 34.5 g/dl (31.0-35.0); Mean Corpuscular Hemoglobin 31.2 pg (27.0-33.0); Mean Corpuscular Volume 90.4 fL (80.0-98.0); Platelet Count 245 X10*3/uL (160-400); Red Blood Count 4.46 X10*6/uL (4.20-5.50); Red Cell Distribution Width 12.4 % (11.0-16.0); White Blood Count 7.4 X10*3/uL (4.8-10.8)
[2024-01-10 12:40] LABS: Alanine Aminotransferase 15 U/L (0-31); Albumin Level 4.4 g/dL (3.5-5.0); Alkaline Phosphatase 60 U/L (39-117); Anion Gap 15 (12-20); Aspartate Amino Transferase 23 U/L (5-31); Bilirubin Total 0.7 mg/dL (0.0-1.0); Blood Urea Nitrogen 14 mg/dL (9-16); Calcium 9.4 mg/dL (8.4-10.2); Carbon Dioxide 23 mmol/L (22-29); Chloride 107 mmol/L (96-108); Estimated Glomerular Filt Rate > 60; Glucose Random 82 mg/dL (60-115); Iron 99 mcg/dL (30-160); Percent Iron Saturation 38 % (15-50); Potassium 3.9 mmol/L (3.3-5.1); Sodium 141 mmol/L (135-145); Total Iron Binding Capacity 263 mcg/dL (228-428); Unsaturated Iron Binding 164 ug/dL
[2024-01-10 12:43] LABS: Vitamin D 25-OH Total 45.1 ng/mL (>30)
[2024-01-10 12:44] LABS: Folate 14.6 ng/mL (> or = 4.0); Vitamin B12 753 pg/mL (200-900)
[2024-01-15 23:18] LABS: Vitamin A 44 mcg/dL (38-98)
[2024-01-17 16:28] LABS: Vitamin B1 15 nmol/L (8-30)
== END 2024-01-10 08:49 | disposition home or self-care (01) ==
LOC: HO.WFDLDS 08:48
PROVIDERS: Visit Provider Nurse Practitioner Family
DX: E51.9 Thiamine deficiency, unspecified (principal); E50.9 Vitamin A deficiency, unspecified; E55.9 Vitamin D deficiency, unspecified
CPT/HCPCS: 36415; 80053; 82306; 82607; 82746; 83540; 84425; 84590; 85027

== ENCOUNTER 2024-01-17 15:46 | Outpatient (AMB) | payer OTHER, SELFPAY ==
--- NOTE | 2024-01-17 16:00 | A.OFFPC_ITS ---
Intake Visit Reasons: fu labs Allergies house dust Allergy (Verified 01/17/24 16:04) sneezing congestion headache raw apple Adverse Reaction (Intermediate, Uncoded 01/17/24 16:04) itching raw tree nut Adverse Reaction (Intermediate, Uncoded 01/17/24 16:04) Itching Medication List - Last Reconciled 01/17/24 by DANICA Gonzales- albuterol sulfate 90 mcg/actuation (ProAir HFA) inhalation levothyroxine 50 mcg PO DAILY loratadine 10 mg PO DAILY PRN [magnesium PO] montelukast 10 mg PO DAILY [multivitamin PO] [vitamin C PO] Tobacco use date assessed: 07/12/23 Dental Screening Dental Screen Date: 07/12/23 HPI HPI Comments History of Present Illness Details 28-year-old female with asthma, vitamin- D deficiency, acne, allergic rhinitis, generalized anxiety disorder, obesity, vitamin B1 deficiency, vitamin- A deficiency, thyroid nodule, hypothyroidism Specialists Bariatric surgery Endocrinology Rheumatology Content Strategy Lead Health maintenance Pap declines. Has appt w/ SLEEVE SETTER SAFETY STITCH 10/2023 Telehealth visit today to f/u on feeling tired + wt gain anxiety wrist pain and terrible sleep Reviewed labs w/ her. All WNL. Vitamin A results pending. In regards to her fatigue, thinks it is related to the time of the time of year & diet and lack of exercise. She was called yesterday about the sleep study, she will pick this up on 01/20/24. OT - has been twice this week and will be going again next week at [facility]. Counseling - she was called and did have intake, but she has not yet been scheduled. Plan Labs WNL Advised to incorporate lifestyle modifications I will f/u once sleep study results are back Cont w/ OT Let me know if you dont hear from counseling As always reach out sooner, should you need anything. This note is constructed using voice recognition software. While every effort has been made to ensure accuracy in zoo veterinarian, still errors may have been included Sometimes, these errors may affect the content or meaning of the given sentence . Total time spent caring for the patient today was 15 minutes. This includes time spent before the visit reviewing the chart, time spent during the visit, and time spent after the visit on documentation [facility] Medical History (Updated 01/02/24 @ 16:01 by DANICA Gonzales-) Bilateral hand pain BMI 33.0-33.9,adult Vitamin B1 deficiency Vitamin A deficiency Vitamin D deficiency Right ankle pain Ingrown nail Hypothyroidism (acquired) Thyroid nodule Surgical History Hx of wisdom tooth extraction No pertinent past surgical history Family History Father No problems noted. Mother Hypothyroidism Brother No problems noted. 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 Brice Freeman, Samara Dominique, Yuniel Griffith and colleagues, with an educational george from [employer]. Physical exam (Primary Care) Tobacco/Smoking Status: Tobacco use Status Tobacco use date assessed 07/12/23 01/02/24 15:28 Patient Tobacco Use Status Never used Tobacco 01/02/24 15:28 e-Cigarette/Vaping Use Never Used 01/02/24 15:28 Thrive Assessment: Date of Thrive Assessment Date Thrive assessed 07/12/23 01/02/24 15:28 Telehealth Telehealth Telehealth Platform: [facility] Location of provider rendering services: practice address Location of patient: address on file Patient Identification confirmed using: Name, : Yes Telehealth method: voice only Patient verbally consented to treatment: Yes Patient verbally consented to billing insurance company: Yes Patient informed of any privacy concerns related to visit: Yes Minutes spent on Phone/Video with Pt.: 9 Coding Level of Care Code Tele Est Pt Level 2 (16780) Complex EM visit Add On G2211 Diagnoses Bilateral hand pain M79.641; M79.642 Daytime somnolence R40.0 MARVIN (generalized anxiety disorder) F41.1 Assessment & Plan Assessment & Plan (1) Bilateral hand pain: Comment: . Code(s): M79.641 - Pain in right hand; M79.642 - Pain in left hand Category: Medical Plan: . (2) Daytime somnolence: Code(s): R40.0 - Somnolence Category: Medical Plan: . (3) MARVIN (generalized anxiety disorder): Comment: Declines medications. Uses herbal supplements. Referred to counseling. Code(s): F41.1 - Generalized anxiety disorder Category: Medical Plan: .
== END 2024-01-17 16:13 | disposition home or self-care (01) ==
LOC: HO.HMCFM 15:46
PROVIDERS: PCP Nurse Practitioner Family; Visit Provider Nurse Practitioner Family
DX: M79.641 Pain in right hand (principal); M79.642 Pain in left hand; R40.0 Somnolence; F41.1 Generalized anxiety disorder

== ENCOUNTER → 2024-01-17 15:46 | Outpatient (BNVA) | payer OTHER, SELFPAY | PROVIDERS: PCP Nurse Practitioner Family; Visit Provider Nurse Practitioner Family ==

== ENCOUNTER → 2024-01-20 14:17 | Outpatient (REF) | payer OTHER, SELFPAY | LOC: HO.SL 14:17 | PROVIDERS: PCP Nurse Practitioner Family; Visit Provider Nurse Practitioner Family | DX: R06.83 Snoring (principal) | CPT/HCPCS: 95806 ==

== ENCOUNTER 2024-02-05 10:14 | Outpatient (AMB) | payer OTHER, SELFPAY ==
--- NOTE | 2024-02-05 16:36 | MHC.PC.OV ---
Intake Visit Reasons: review sleep study Allergies house dust Allergy (Verified 01/17/24 16:04) sneezing congestion headache raw apple Adverse Reaction (Intermediate, Uncoded 01/17/24 16:04) itching raw tree nut Adverse Reaction (Intermediate, Uncoded 01/17/24 16:04) Itching Tobacco use date assessed: 07/12/23 Dental Screening Dental Screen Date: 07/12/23 HPI HPI Comments History of Present Illness Details 28-year-old female with asthma, vitamin-D deficiency, acne, allergic rhinitis, generalized anxiety disorder, obesity, vitamin B1 deficiency, vitamin-A deficiency, thyroid nodule, hypothyroidism Specialists Bariatric surgery Endocrinology Rheumatology Asw Specialist Health maintenance Pap declines. Has appt w/ NUCLEAR PLANT INSTRUMENT TECHNICIAN 10/2023 History of Present Illness F/U Sleep Study: She underwent a sleep study, but reported that she could not sleep at all during the recording, due to discomfort caused by the device. The study recorded 160 minutes during which no apnea was noted; however, snoring was observed for 56% of the time spent recumbent, specifically when she was on her back. The patient experiences sleep disturbances attributed to stress, anxiety, past traumas, and nightmares. She had her first session with [facility], which is part of her stress and anxiety management plan. She prefers natural sleep aids, like valerian root and herbal teas, and utilizes non-pharmacological methods such as limiting screen time, employing breathing exercises, and engaging in physical exercise to improve sleep quality. Review of Systems - Neurological: Reports nightmares and difficulty falling asleep. - Psychiatric: Reports anxiety and stress. - Respiratory: Reports snoring when lying on back. Note: This physical exam was conducted in conjunction with the patient via our Telehealth platform. Plan - Sleep Disturbance: Continue use of natural supplements and techniques such as valerian root, herbal teas, minimizing screen time, and engaging in exercise and breathing exercises. The patient has initiated counseling through [facility], which is planned to continue. - Anxiety: Counseling sessions are ongoing to address stress, anxiety, and past traumas. Non-pharmacological approaches will be continued as per patient preference. Patient was informed and verbally consented to the use of an ambient scribe for clinic note documentation during this visit. Discussion Notes I discussed the results of the sleep study with the patient, noting that while the recorded data was insufficient to draw definitive conclusions due to her inability to sleep, there was an absence of sleep apnea observed during the period of snoring. We talked about her recent initiation of therapy at [facility] and her dedication to natural remedies and methods to promote sleep. I advised her to continue with her current regimen, including counseling and the lifestyle adjustments she finds helpful. I reminded her that she has a follow-up appointment scheduled for July 13 and encouraged her to reach out earlier if necessary. Patient Instructions - Continue the use of valerian root and herbal teas as natural sleep aids. - Maintain counseling sessions at [facility]. - Keep utilizing lifestyle adjustments like reducing screen time, engaging in breathing exercises, and maintaining a consistent exercise routine. - Monitor sleep patterns and snoring. - Contact for an earlier consultation if symptoms worsen or do not improve. Total time spent caring for the patient today was 15 minutes. This includes time spent before the visit reviewing the chart, time spent during the visit, and time spent after the visit on documentation [facility] Medical History (Updated 01/02/24 @ 16:01 by Nakia Mon, [facility]) Bilateral hand pain BMI 33.0-33.9,adult Vitamin B1 deficiency Vitamin A deficiency Vitamin D deficiency Right ankle pain Ingrown nail Hypothyroidism (acquired) Thyroid nodule Surgical History Hx of wisdom tooth extraction No pertinent past surgical history Family History Father No problems noted. Mother Hypothyroidism Brother No problems noted. 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 Brice L. PeteSamara spencer Kurt Kroenke and colleagues, with an educational george from [employer]. Physical exam (Primary Care) Tobacco/Smoking Status: Tobacco use Status Tobacco use date assessed 07/12/23 01/17/24 16:01 Patient Tobacco Use Status Never used Tobacco 01/17/24 16:01 e-Cigarette/Vaping Use Never Used 01/17/24 16:01 Thrive Assessment: Date of Thrive Assessment Date Thrive assessed 07/12/23 01/17/24 16:01 Telehealth Telehealth Telehealth Platform: [employer] Location of provider rendering services: practice address Location of patient: address on file Patient Identification confirmed using: Name, : Yes Telehealth method: voice only Patient verbally consented to treatment: Yes Patient verbally consented to billing insurance company: Yes Patient informed of any privacy concerns related to visit: Yes Minutes spent on Phone/Video with Pt.: 6 Coding Level of Care Code Est Pt Level 2 (68814) Complex EM visit Add On G2211 Diagnoses Daytime somnolence R40.0 MARVIN (generalized anxiety disorder) F41.1 Assessment & Plan Assessment & Plan (1) Daytime somnolence: Code(s): R40.0 - Somnolence Category: Medical (2) MARVIN (generalized anxiety disorder): Comment: Declines medications. Uses herbal supplements. Referred to counseling. Code(s): F41.1 - Generalized anxiety disorder Category: Medical Plan .
== END 2024-02-05 16:45 | disposition home or self-care (01) ==
LOC: HO.HMCFM 10:15
PROVIDERS: PCP Nurse Practitioner Family; Visit Provider Nurse Practitioner Family
DX: R40.0 Somnolence (principal); F41.1 Generalized anxiety disorder

== ENCOUNTER → 2024-02-05 10:14 | Outpatient (BNVA) | payer OTHER, SELFPAY | PROVIDERS: PCP Nurse Practitioner Family; Visit Provider Nurse Practitioner Family | DX: R40.0 Somnolence (principal); F41.1 Generalized anxiety disorder | CPT/HCPCS: 99212 ==

== ENCOUNTER 2024-03-02 16:11 | Outpatient (AMB) | payer OTHER, SELFPAY ==
--- NOTE | 2024-03-02 16:30 | MHC.PC.OV ---
Intake Visit Reasons: Sinus Infection *[phone] Allergies house dust Allergy (Verified 03/02/24 16:30) sneezing congestion headache raw apple Adverse Reaction (Intermediate, Uncoded 03/02/24 16:30) itching raw tree nut Adverse Reaction (Intermediate, Uncoded 03/02/24 16:30) Itching Medication List - Last Reconciled 03/02/24 by Nakia Mon PROCTOLOGIST- albuterol sulfate 90 mcg/actuation (ProAir HFA) inhalation amoxicillin 875 mg PO BID levothyroxine 50 mcg PO DAILY loratadine 10 mg PO DAILY PRN [magnesium PO] montelukast 10 mg PO DAILY [multivitamin PO] [vitamin C PO] Tobacco use date assessed: 07/12/23 Dental Screening Dental Screen Date: 07/12/23 HPI HPI Comments History of Present Illness Details 28-year-old female with asthma, vitamin-D deficiency, acne, allergic rhinitis, generalized anxiety disorder, obesity, vitamin B1 deficiency, vitamin-A deficiency, thyroid nodule, hypothyroidism History of Present Illness The patient is a 28-year-old female presenting with symptoms suggestive of a sinus infection. Approximately one week prior, the patient experienced soreness in the right tonsil, fatigue, and a canker sore in the right corner of the mouth. These symptoms initially improved but recurred a week later, affecting both tonsils and causing the canker sore to reappear. The patient applied topical Carmex to alleviate the canker sore, which she reports has since resolved. The patient also experienced nasal dryness, likely exacerbated by heating conditions, without associated fever but with chills. Currently, the patient notes nasal congestion, soreness above the teeth, and slight soreness in the cheeks, without pain on the forehead or in the ears. Review of Systems - Respiratory: Reports nasal congestion. - Neurological: Reports fatigue and tiredness. - Gastrointestinal: Reports upset stomach associated with symptoms which is now resolved. Plan - Prescribe amoxicillin 875mg, one tablet to be taken orally twice daily for seven days. Recommend taking with food to prevent gastrointestinal upset. - Initiate saline nasal rinses twice daily to maintain nasal moisture and integrity. - Follow-up in seven days if symptoms persist or worsen to reassess the condition and modify treatment if necessary. Patient was informed and verbally consented to the use of an ambient scribe for clinic note documentation during this visit. Discussion Notes During the visit, I discussed with the patient the diagnosis of bacterial sinusitis, emphasizing that the relapse of symptoms after initial improvement aligns with a bacterial etiology. I recommended an antibiotic course of amoxicillin, explaining its common use for bacterial sinus infections and noting no known medication allergies. The patient was agreeable to this treatment. I also advised the use of nasal saline rinses to assist with nasal moisturization and alleviation of congestion. I assured the patient that symptom improvement should be noticeable within 48 hours of starting the antibiotics, but stressed completing the full 7-day course. I instructed the patient to reach out if symptoms worsen or fail to improve. I sent the prescription electronically to the patient's preferred pharmacy and provided guidance on the importance of food intake with the medication to avoid gastrointestinal upset. Patient Instructions - Take amoxicillin twice daily with food for 7 days. - Use saline nasal rinses daily to help relieve congestion. - Complete the full course of antibiotics even if feeling better earlier. - Monitor symptoms; if not improving in 48 hours or worsening, contact healthcare provider. - water control supervisor the medication at [facility] as discussed. Total time spent caring for the patient today was 18 minutes. This includes time spent before the visit reviewing the chart, time spent during the visit, and time spent after the visit on documentation [facility] Medical History (Updated 03/02/24 @ 16:36 by Nakia Mon, [facility]) Bilateral hand pain BMI 33.0-33.9,adult Vitamin B1 deficiency Vitamin A deficiency Vitamin D deficiency Right ankle pain Ingrown nail Hypothyroidism (acquired) Thyroid nodule Surgical History Hx of wisdom tooth extraction No pertinent past surgical history Family History Father No problems noted. Mother Hypothyroidism Brother No problems noted. 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 Brice Freeman, Samara Dominique, Yuniel Griffith and colleagues, with an educational george from [employer]. Physical exam (Primary Care) Tobacco/Smoking Status: Tobacco use Status Tobacco use date assessed 07/12/23 02/05/24 16:36 Patient Tobacco Use Status Never used Tobacco 02/05/24 16:36 e-Cigarette/Vaping Use Never Used 02/05/24 16:36 Thrive Assessment: Date of Thrive Assessment Date Thrive assessed 07/12/23 02/05/24 16:36 Telehealth Telehealth Telehealth Platform: [facility] Location of provider rendering services: practice address Location of patient: address on file Patient Identification confirmed using: Name, : Yes Telehealth method: voice only Patient verbally consented to treatment: Yes Patient verbally consented to billing insurance company: Yes Patient informed of any privacy concerns related to visit: Yes Minutes spent on Phone/Video with Pt.: 10 Coding Level of Care Code Tele Est Pt Level 3 (68298) Complex EM visit Add On G2211 Diagnoses Acute bacterial sinusitis J01.90; B96.89 Assessment & Plan Assessment & Plan (1) Acute bacterial sinusitis: Code(s): J01.90 - Acute sinusitis, unspecified; B96.89 - Other specified bacterial agents as the cause of diseases classified elsewhere Category: Medical Plan . Medications: New amoxicillin 875 mg PO BID 14 tabs 0RF
== END 2024-03-02 16:40 | disposition home or self-care (01) ==
LOC: HO.HMCFM 16:11
PROVIDERS: PCP Nurse Practitioner Family; Visit Provider Nurse Practitioner Family
DX: J01.90 Acute sinusitis, unspecified (principal); B96.89 Other specified bacterial agents as the cause of diseases classified elsewhere

== ENCOUNTER → 2024-03-02 16:11 | Outpatient (BNVA) | payer OTHER, SELFPAY | PROVIDERS: PCP Nurse Practitioner Family; Visit Provider Nurse Practitioner Family ==

== ENCOUNTER → 2024-04-06 15:30 | Outpatient (AMB) | payer OTHER, SELFPAY ==
--- NOTE | 2024-04-06 16:35 | MHC.PC.OV ---
Vital Signs 04/06/24 16:38 Temp 96.5 F L Temp Source Temporal Artery Scan Intake Visit Reasons: symptoms getting worse *[phone] Allergies house dust Allergy (Verified 04/06/24 16:35) sneezing congestion headache raw apple Adverse Reaction (Intermediate, Uncoded 04/06/24 16:35) itching raw tree nut Adverse Reaction (Intermediate, Uncoded 04/06/24 16:35) Itching Medication List - Last Reconciled 04/06/24 by WILMA GonzalesP- albuterol sulfate 90 mcg/actuation (ProAir HFA) inhalation levothyroxine 50 mcg PO DAILY loratadine 10 mg PO DAILY PRN [magnesium PO] montelukast 10 mg PO DAILY [multivitamin PO] [vitamin C PO] Tobacco use date assessed: 04/06/24 Dental Screening Dental Screen Date: 04/06/24 Did you have a dental visit in the last 12 months?: Yes Did you have a dental problem in the last 6 months where you did not have access to dental care?: No Was dental information given to patient?: Patient has dentist HPI HPI Comments History of Present Illness Details Telehealth visit today: The patient is a 28-year-old female with worsening symptoms of sinusitis and throat tightness. The initial diagnosis was made at the end of February, following which antibiotics were prescribed, resulting in temporary relief. Approximately one week prior to this visit, symptoms resurfaced. The patient describes a sensation of pressure in the nasal passages, a slight cough, headaches, dizziness, and runny nose. She reports tightness in the throat, which is the primary concern, a scratchy sore throat, and occasional difficulty in swallowing. She also experiences periodic chills, but no confirmed fever. The throat tightness has persisted for about a week. The patient has been regularly using montelukast for controlling allergy symptoms and has been taking loratadine as needed; however, she currently does not have loratadine available. She has not experienced asthma symptoms recently and has not used her inhaler. Discussion Notes I discussed with the patient that her current symptoms could be associated with an allergic or viral component, given the lack of fever and flu-like symptoms common in community infections like influenza, RSV, or COVID-19. We deliberated on the risks and benefits of restarting loratadine and the importance of monitoring symptoms. I recommended reporting any significant worsening or inability to manage symptoms such as severe throat tightness or swallowing difficulty. I advised her on scheduling appointments through the patient portal for faster alignment with my schedule and discussed the importance of an upcoming in-person evaluation. Furthermore, we agreed that loratadine would be prescribed, and the patient was reminded of the need for emergency care should symptoms worsen. Pt instructions - Take loratadine as prescribed to manage allergy symptoms. [facility] - Monitor symptoms, and seek immediate medical attention if experiencing severe throat tightness or difficulty swallowing. - Attend the scheduled in-person visit on April 08 at 9:00 AM. - Use the patient portal for more efficient appointment scheduling in the future. Plan - Evaluate sinusitis and throat tightness further during the upcoming in-person visit to assess the need for additional treatment or investigations. - Continue taking montelukast for allergy management and start a prescribed course of loratadine. - Schedule and follow up for further evaluation if symptoms persist or worsen, especially before the next scheduled visit. - Discussed environmental allergy control measures and symptom monitoring until the office appointment. Patient was informed and verbally consented to the use of an ambient scribe for clinic note documentation during this visit. Total time spent caring for the patient today was 15 minutes. This includes time spent before the visit reviewing the chart, time spent during the visit, and time spent after the visit on documentation, reviewing laboratory results, diagnostic imaging, medications, performing a medically necessary evaluation, counseling on diagnoses, care coordination, ordering appropriate tests, ordering appropriate medications, review of tests performed by other providers, reporting test results with the patient, communication with other healthcare providers. [facility] Medical History (Updated 03/02/24 @ 16:36 by Nakia Mon, [facility]) Bilateral hand pain BMI 33.0-33.9,adult Hypothyroidism (acquired) Ingrown nail Right ankle pain Thyroid nodule Vitamin A deficiency Vitamin B1 deficiency Vitamin D deficiency Surgical History Hx of wisdom tooth extraction No pertinent past surgical history Family History Father No problems noted. Mother Hypothyroidism Brother No problems noted. 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 Brice Freeman, Samara Dominique, Yuniel Griffith and colleagues, with an educational george from [employer]. Physical exam (Primary Care) Vital Signs: Last Vital Signs Temp 96.5 F L 04/06/24 16:38 Tobacco/Smoking Status: Tobacco use Status Tobacco use date assessed 04/06/24 04/06/24 16:41 Patient Tobacco Use Status Never used Tobacco 04/06/24 16:35 e-Cigarette/Vaping Use Never Used 04/06/24 16:35 Thrive Assessment: Date of Thrive Assessment Date Thrive assessed 07/12/23 04/06/24 16:35 Telehealth Telehealth Telehealth Platform: [facility] Location of provider rendering services: practice address Location of patient: address on file Patient Identification confirmed using: Name, : Yes Telehealth method: voice only Patient verbally consented to treatment: Yes Patient verbally consented to billing insurance company: Yes Patient informed of any privacy concerns related to visit: Yes Minutes spent on Phone/Video with Pt.: 10 Coding Level of Care Code Tele Est Pt Level 2 (07644) Complex EM visit Add On G2211 Diagnoses Flu-like symptoms R68.89 Assessment & Plan Assessment & Plan (1) Flu-like symptoms: Code(s): R68.89 - Other general symptoms and signs Plan . Medications: New loratadine 10 mg PO DAILY PRN 90 tabs 0RF allergic symptoms
[2024-04-06 16:38] VITALS: TEMP 35.8
== END ==
LOC: HO.HMCFM 15:30
PROVIDERS: PCP Nurse Practitioner Family; Visit Provider Nurse Practitioner Family
DX: R68.89 Other general symptoms and signs (principal)

== ENCOUNTER 2024-04-08 08:42 | Outpatient (AMB) | payer OTHER, SELFPAY ==
--- NOTE | 2024-04-08 08:49 | A.OFFPC_ITS ---
Vital Signs 04/08/24 08:53 Height 5 ft 4 in Weight 191 lb 8 oz BMI 32.9 BP 105/66 Blood Pressure Location Lt brachial Position Sitting Pulse 108 H Pulse Source Pulse Oximeter Temp 98.1 F Temp Source Oral Pulse Oximetry (%) 99 Oxygen Delivery Method Simple Mask Intake Visit Reasons: flu like sx Intake Note: Patient complaining of nasal congestion, post nasal flow, scratchy throat, headache, fatigue, sneezing, dry nose and slight fever x 1 week Tool Operator Required: No Allergies house dust Allergy (Verified 04/08/24 08:49) sneezing congestion headache raw apple Adverse Reaction (Intermediate, Uncoded 04/06/24 16:35) itching raw tree nut Adverse Reaction (Intermediate, Uncoded 04/06/24 16:35) Itching Medication List - Last Reconciled 04/08/24 by WILMA GonzalesP- albuterol sulfate 90 mcg/actuation (ProAir HFA) inhalation levothyroxine 50 mcg PO DAILY loratadine 10 mg PO DAILY PRN [magnesium PO] montelukast 10 mg PO DAILY [multivitamin PO] [vitamin C PO] Tobacco use date assessed: 04/06/24 Dental Screening Dental Screen Date: 04/06/24 HPI HPI Comments History of Present Illness Details 28-year-old female with asthma, vitamin- D deficiency, acne, allergic rhinitis, generalized anxiety disorder, obesity, vitamin B1 deficiency, vitamin- A deficiency, thyroid nodule, hypothyroidism, mild intermittent asthma The patient is a 28-year-old female presenting with influenza-like symptoms. She reports a sensation of tightness and soreness in her throat, as well as ear discomfort, predominantly in the left ear. These symptoms started recently. The patient has been experiencing a persistent postnasal drip for several months. She notes a slight improvement in throat discomfort after starting loratadine. She also mentions elevated pulse rates, often related to her menstrual cycle. The patient's symptoms include sore sinuses. The patient has a history of using herbal remedies and reports using inhalation and local honey for relief of symptoms. Feels asthma is well controlled. Prn and limited use of CHIOMA + effect. Social History - Wears a mask consistently when in publ ic or on the bus. - Uses herbal remedies, tea, and inhalat ion therapy for symptom relief. Physical Exam General: Awake, alert. No apparent distress Eyes: Sclera and conjunctiva clear bilaterally Nose: Nares patent, turbinates within normal limits, mild R maxillary sinus tenderness with palpation Ears: Right tympanic membrane intact and clear, left EAC has some wax, obscuring visualization of TM Throat: Moist mucosa membrane, pharynx within normal limits, no exudate, uvula midline, no ac adenopathy Cardiovascular: Regular rrhythm, mildly tachycardic Respiratory: Clear to auscultation bilaterally Discussion Notes We discussed the likely viral etiology of the patient's symptoms, including influenza or COVID-19, given the presentation and the ongoing community prevalence of these conditions. I recommended a nasal swab to test for influenza type A and B, COVID-19, and RSV. We agreed on sending the sample to the lab for confirmation, with results expected by the end of the day. The patient is concerned about the recurrent throat tightness, hoping it is due to a transient infection. I reassured her that her throat examination did not indicate a severe infection. We discussed continuing loratadine and suggested local honey as a symptomatic relief for postnasal drip. Follow-up was discussed once the test results are available. Patient Instructions - Continue using loratadine as currently prescribed. - Consider using local honey to soothe p ostnasal drip. - Expect a follow-up call for test resul ts and further management. - Monitor symptoms and seek care if they worsen. Plan - Await nasal swab results for influenza , COVID-19, and RSV to determine appropriate management. - Continue loratadine for symptomatic re lief of nasal congestion and postnasal drip. - Consider sinusitis related to symptoms ; plan to address post-diagnostic test confirmation. - Explore use of local honey for postnas al drip symptom relief. - Reassess throat and ear discomfort bas ed on test outcomes and patient's response to current treatment. Patient was informed and verbally consented to the use of an ambient scribe for clinic note documentation during this visit. Total time spent caring for the patient today was 30 minutes. This includes time spent before the visit reviewing the chart, time spent during the visit, and time spent after the visit on documentation, reviewing laboratory results, diagnostic imaging, medications, performing a medically necessary evaluationlatonya on diagnoses, care coordination, ordering appropriate tests, ordering appropriate medications, review of tests performed by other providers, reporting test results with the patient, communication with other healthcare providers. Viral swab neg tx w/ ab for sinusitis pt made aware via portal [facility] Medical History (Updated 04/08/24 @ 09:30 by Nakia Mon [facility]) Bilateral hand pain BMI 33.0-33.9,adult Hypothyroidism (acquired) Ingrown nail Right ankle pain Thyroid nodule Vitamin A deficiency Vitamin B1 deficiency Vitamin D deficiency Surgical History Hx of wisdom tooth extraction No pertinent past surgical history Family History Father No problems noted. Mother Hypothyroidism Brother No problems noted. 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 1. Little interest or pleasure in doing things: not at all 2. Feeling down, depressed, or hopeless: several days 3. Trouble falling or staying asleep, or sleeping too much: nearly every day 4. Feeling tired or having little energy: several days 5. Poor appetite or overeating: not at all 6. Feeling bad about yourself - or that you are a failure or have let yourself or your family down: not at all 7. Trouble concentrating on things, such as reading the newspaper or watching television: not at all 8. Moving or speaking so slowly that other people could have noticed. Or the opposite - being so fidgety or restless that you have been moving around a lot more than usual: not at all 9. Thoughts that you would be better off or of hurting yourself in some way: not at all Total score: 5 Depression Screening Interpretation: Negative Depression Screening Done: Yes 20718 - PHQ-9 Billing: Yes Source: Developed by Drs. Brice Freeman, Samara Dominique, Yuniel Griffith and colleagues, with an educational george from [employer]. Thrive Questionnaire Date Thrive assessed: 04/08/24 I am a: Patient What is your living situation today?: I choose not to answer this question Within the past 12 months, did the food you bought not last and you didn't have the money to get more?: Never true Within the past 12 months, did you worry whether your food would run out before you got money to buy more?: Sometimes True Do you have trouble paying for medicines?: No Do you have trouble getting transportation to medical appointments?: I choose not to answer this question Do you have trouble paying your heating and electricity bill?: I choose not to answer this question Do you have trouble taking care of your child, family member or friend?: No Do you have trouble with day-to-day activities such as bathing, preparing meals, shopping, managing finances, etc.?: No Are you currently unemployed and looking for a job?: Yes Are you interested in more education?: Yes Please select the resources that you would like help with: None Currently or been in a relationship where the following occur: No concerns reported THRIVE Score: 1 AUDIT C Alcohol Use Questionnaire (AUDIT-C) 1. How often do you have a drink containing alcohol?: Never 3. How often do you have six or more drinks on one occasion?: Never Total Score: 0 Score Reviewed/Action Taken: Yes MARVIN-7 AMB Questionnaire MARVIN-7 Date MARVIN - 7 assessed: 04/08/24 Feeling nervous, anxious, or on edge: 2 = More than half the days Not being able to stop or control worryin = Several days Worrying too much about different things: 1 = Several days Trouble relaxin = Several days Being so restless that it is hard to sit still: 0 = Not at all Becoming easily annoyed or irritable: 0 = Not at all Feeling afraid as if something awful might happen: 1 = Several days Total MARVIN-7 score (0-4 normal; 5-9 mild; 10-14 moderate; 15-21 severe): 6 Source: Developed by Samara Neville, Yuniel Griffith and colleagues, with an educational george from [employer]. MARVIN-7 Assessment Billing MARVIN-7 Assessment Tool: MARVIN-7 Assessment 48019 ACT Questionnaire In the past 4 weeks, how much of the time did your asthma keep you from getting as much done at work, school or at home?: None of the time During the past 4 weeks, how often have you had shortness of breath?: Not at all During the past 4 weeks, how often did your asthma symptoms wake you up at night or earlier than usual in the morning?: Not at all During the past 4 weeks, how often have you had to use your rescue inhaler or nebulizer medication?: Not at all How would you rate your asthma control during the past 4 weeks?: Completely controlled ACT Interpretation: Negative Score: 25 Physical exam (Primary Care) Vital Signs: Last Vital Signs Temp 98.1 F 04/08/24 08:53 Pulse 108 H 04/08/24 08:53 BP 105/66 04/08/24 08:53 Pulse Ox 99 04/08/24 08:53 Oxygen Delivery Method Simple Mask 04/08/24 08:53 BMI result Body Mass Index 32.9 BMI Assessment/Plan discussion: High BMI High, discussed plan: lifestyle Tobacco/Smoking Status: Tobacco use Status Tobacco use date assessed 04/06/24 04/08/24 08:49 Patient Tobacco Use Status Never used Tobacco 04/08/24 08:49 e-Cigarette/Vaping Use Never Used 04/08/24 08:49 PHQ-9: PHQ-9 Score PHQ-9: Total score 5 04/08/24 09:37 Depression Screening Interpretation: Negative Thrive Assessment: Date of Thrive Assessment Date Thrive assessed 04/08/24 04/08/24 08:49 Currently or been in a relationship where the following occur: No concerns reported Results Reviewed Results Reviewed: RUN: 04/08/24 1522 PAGE 1 [facility] [address] [place] [id number] Volunteer Specialist: Braydon Husain M.D. Specimen Inquiry Name: Nicole Caal Age/Sex: 28/[facility] 1995 [id number]#: [id number] Attend Dr: Nakia Mon BUSINESS PROCESS ASSOCIATE- Re04/08/24 Status: REG REF Location: [facility] Disch: SPEC : [id number] LUIZ: 04/08/24 STATUS: COMP REQ : [id number] RECD: 04/08/[address] [facility] [address]: Nakia Mon [facility] COMP: 04/08/24 ENTERED: 04/08/[address] [facility] [address]: ORDERED: SARS/FLU/RSV Test Result Flag Reference Influenza A PCR NEGATIVE Negative Influenza B PCR NEGATIVE Negative RSV RNA QualPCR NEGATIVE Negative SARSCOV2 RT-PCR NEGATIVE Negative All test results must be correlated with clinical findings. Negative results do not preclude SARS-CoV2, influenza A virus, influenza B virus and/or RSV infection and should not be used as the sole basis for treatment or other patient management decisions. Negative results must be combined with clinical observations, patient history, and epidemiological information. This test has not been evaluated for monitoring treatment of infection. This test has been authorized by the FDA under an Emergency Use Authorization (EUA) for use by authorized laboratories. Testing performed on the [employer] GeneXpert utilizing real-time RT-PCR. All SARS CoV2 and positive influenza A/B results are reported to [facility]. END OF REPORT Coding Level of Care Code Est Pt Level 4 (70357) Complex EM visit Add On G2211 Diagnoses Flu-like symptoms R68.89 Obesity (BMI 30.0-34.9) E66.9 Mild intermittent asthma without complication J45.20 Asthma complication type: uncomplicated Asthma persistence: intermittent Asthma severity: mild Acute bacterial sinusitis J01.90; B96.89 Additional Codes Asthma Control Questionnaire - ACT Interpretation: Negative ([id number]) MARVIN-7 Assessment Billing - MARVIN-7 Assessment Tool: MARVIN-7 Assessment 47470 ([id number]) PHQ-9 - 13321 - PHQ-9 Billing: Yes ([id number]) Assessment & Plan Assessment & Plan (1) Flu-like symptoms: Code(s): R68.89 - Other general symptoms and signs Category: Medical (2) Obesity (BMI 30.0-34.9): Comment: Lifestyle modifications encouraged BMI greater than 31 Code(s): E66.9 - Obesity, unspecified Category: Medical (3) Asthma: Comment: Well controlled with p.r.n. Chioma. Continue Code(s): J45.909 - Unspecified asthma, uncomplicated Category: Medical Qualifiers: Asthma complication type: uncomplicated Asthma persistence: intermittent Asthma severity: mild Qualified Code(s): J45.20 - Mild intermittent asthma, uncomplicated (4) Acute bacterial sinusitis: Code(s): J01.90 - Acute sinusitis, unspecified; B96.89 - Other specified bacterial agents as the cause of diseases classified elsewhere Category: Medical Plan . Orders: Orders SARS-CoV2/FLU/RSV Today R09.89 - Other specified symptoms and signs involving the circulatory and respiratory systems, R68.89 - Other general symptoms and signs Medications: New cefpodoxime must administer with a meal/food 200 mg PO BID 7 days 14 tabs 0RF
[2024-04-08 08:53] VITALS: BP 105/66; PULSE 108; TEMP 36.7; O2SAT 99; BMI 32.9
== END 2024-04-08 10:27 | disposition home or self-care (01) ==
PROVIDERS: PCP Nurse Practitioner Family; Visit Provider Nurse Practitioner Family
DX: J01.90 Acute sinusitis, unspecified (principal); R68.89 Other general symptoms and signs; E66.9 Obesity, unspecified; Z68.32 Body mass index [BMI] 32.0-32.9, adult; J45.20 Mild intermittent asthma, uncomplicated; B96.89 Other specified bacterial agents as the cause of diseases classified elsewhere

== ENCOUNTER 2024-04-08 08:42 | Outpatient (REF) | payer OTHER, SELFPAY ==
[2024-04-08 13:08] LABS: Influenza A PCR NEGATIVE (Negative); Influenza B PCR NEGATIVE (Negative); Resp Syncy Virus RNA Qual PCR NEGATIVE (Negative); SARS COV2 PCR INHOUSE NEGATIVE (Negative)
== END 2024-04-08 08:43 | disposition home or self-care (01) ==
LOC: HO.LNP 08:42
PROVIDERS: PCP Nurse Practitioner Family; Visit Provider Nurse Practitioner Family
DX: J01.90 Acute sinusitis, unspecified (principal); B96.89 Other specified bacterial agents as the cause of diseases classified elsewhere; J45.20 Mild intermittent asthma, uncomplicated; R68.89 Other general symptoms and signs; R09.89 Other specified symptoms and signs involving the circulatory and respiratory systems
CPT/HCPCS: 0241U; 96127; 96160; 99212

== ENCOUNTER 2024-08-05 09:40 | Outpatient (AMB) | payer OTHER, SELFPAY ==
--- NOTE | 2024-08-05 09:58 | A.OFFPC_ITS ---
Vital Signs 08/05/24 10:02 Height 5 ft 4 in Weight 187 lb 2 oz BMI 32.1 BP 98/67 Blood Pressure Location Rt brachial Position Sitting Respiration 12 Pulse 95 Pulse Source Pulse Oximeter Temp 96.9 F Temp Source Oral Pulse Oximetry (%) 99 Oxygen Delivery Method Room Air Intake Visit Reasons: CPE Intake Note: CPE. Patient is requesting blood work for her thyroid levels. Glove Sewer Required: No Allergies house dust Allergy (Verified 08/05/24 10:21) sneezing congestion headache raw apple Adverse Reaction (Intermediate, Uncoded 08/05/24 09:59) itching raw tree nut Adverse Reaction (Intermediate, Uncoded 08/05/24 09:59) Itching Medication List - Last Reconciled 08/05/24 by DANICA Gonzales-YAEL albuterol sulfate 90 mcg/actuation (ProAir HFA) inhalation levothyroxine 50 mcg PO DAILY loratadine 10 mg PO DAILY PRN [magnesium PO] montelukast 10 mg PO DAILY [multivitamin PO] [vitamin C PO] Tobacco use date assessed: 08/05/24 Dental Screening Dental Screen Date: 08/05/24 Did you have a dental visit in the last 12 months?: Yes Did you have a dental problem in the last 6 months where you did not have access to dental care?: No Was dental information given to patient?: Patient has dentist HPI HPI Comments History of Present Illness Details 28-year-old female with asthma, vitamin- D deficiency, acne, allergic rhinitis, generalized anxiety disorder, obesity, vitamin B1 deficiency, vitamin- A deficiency, thyroid nodule, hypothyroidism Surgery: wisdom teeth removal Family hx: denies any changes Social: lives in [place], using public transportation 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 - Asthma: Managed with albuterol inhaler ; recent non-productive cough noted. Linked to allergies. - Vitamin D deficiency: Supplementation ongoing. - Generalized anxiety disorder: No curre nt therapy; past counseling trials discontinued. Self-managed; anxiety fluctuates, influenced by menstrual cycle. - Hypothyroidism: Managed with levothyro xine 50 mcg; thyroid nodule under observation. - Seasonal allergies: Managed with lorat adine and montelukast; symptoms worsening this year. Past Surgical History - [place] teeth removal. Family History - No significant changes in family medic al history reported over the past year. Social History - Resides in [place] with her mother. - Seeking employment; engaged in [employer] work. - Exercises by running and cycling; desc ribes soreness post-run. - Uses public transportation. - Reports prior weight loss through nutr itional guidance; some recent challenges with weight management. Health Maintenance - Regular monitoring of thyroid levels p lanned. - Discussed Tdap vaccination and its com ponents; patient agreed to receive it during the visit. - Emphasized importance of exercise and balanced nutrition. Review of Systems - Respiratory: Reports dry cough. - Neurological/Psychiatric: Reports expe riencing nightmares, especially premenstrually; denies current suicidal ideation or desire to harm others. - Musculoskeletal: Reports soreness post -exercise, specifically in L lower back. - Allergy/Immunology: Reports worsening seasonal allergy symptoms this year. - Endocrine: Reports stable thyroid func tion. Physical Exam General: Well developed, well nourished, in no acute distress. Appears stated age. Head: Normocephalic, atraumatic. Eyes: Pupils are equal, round and reactive to light and accommodation. Conjunctivae are clear. Vision grossly normal. Patient has astigmatism and uses glasses as needed. Ears: TMs clear AU, EACS WNL Nose: Patent, without discharge. Neck: Supple, no adenopathy or thyromegaly. Thyroid nodule present,nontender Breast: Edu on SBE Lungs: Clear to auscultation bilaterally. No rales, rhonchi or wheeze noted. Good air flow in all gann. Heart: Regular rate and rhythm. No murmurs, click, rubs or gallops are noted. Abdomen: Bowel sounds present in all quadrants. The abdomen is soft, nontender, with no masses or organomegaly noted. No hernias are noted. : Deferred. Reviewed recommendations for routine [employer] Pulses: Peripheral pulses are equal and palpable bilaterally. Extremities: No clubbing, cyanosis nor edema is noted. Neurologic: Gait and station normal. Cranial Nerves 2-12 intact. Motor strength grossly symmetrical and intact. No sensory loss. Balance normal. Pain over lumbar spine in the area of L5 with palp and over L SI joint, negative SLR bilat, normal strength tone and reflexes. Skin: No rashes, ulcers, or lesions noted. Turgor is good. Skin color is good. Hair and nails are without abnormalities. Psych: Normal eye contact, affect and mood appropriate, and normal interactions. Patient is alert and appropriate to context. Results See below Discussion Notes We discussed various management and treatment options for the patient's ongoing conditions. I addressed the likely link between her cough and allergies, with reassurance provided. We planned to check her thyroid function to confirm her levothyroxine dose adequacy. I explained the benefits of the Tdap vaccine for pertussis protection due to her asthma. For SI joint pain, I recommended targeted exercises and offered a referral for physical therapy. I advised utilizing her nutritional guidance from previous consultations for weight management and emphasized the importance of consistent exercise. Assessment and Plan 1. Asthma - Albuterol and montelukast. Allergy spe cialist follow-up. 2. Vitamin D Deficiency - Continue supplementation. 3. Generalized Anxiety Disorder - Self-managed. 4. Hypothyroidism - Continuing levothyroxine. Verify thyro id levels. 5. Thyroid Nodule - Continue monitoring. 6. Seasonal Allergies - Loratadine/montelukast. Assess if wors ens. 7. SI Joint Pain - Exercises and physical therapy referra l. Patient Instructions - Continue using your albuterol inhaler and montelukast as necessary. - Maintain your regimen of vitamin D sup plements. - Manage anxiety with self-care; reach o ut if needed. - We will reassess your thyroid levels t o ensure your medication dose is effective. - Use your current allergy medications a s needed; consult us if symptoms persist. - Try the provided exercises for your ba ck pain, and follow up with physical therapy. - You have received the Tdap vaccine tofely drew. - RTO 1 year CPE sooner PRN Consent Patient was informed and verbally consented to the use of an ambient scribe for clinic note documentation during this visit. An additional 30 minutes was spent addressing the problem(s) noted at todays visit. This includes time spent before the visit reviewing the chart, time spent during the visit, and time spent after the visit on documentation reviewing laboratory results, diagnostic imaging, medications, performing a medically necessary evaluation, counseling on diagnoses, care coordination, ordering appropriate tests, ordering appropriate medications, review of tests performed by other providers, reporting test results with the patient, communication with other healthcare providers. [facility] Medical History (Updated 08/05/24 @ 16:[address] [facility]) Bilateral hand pain BMI 33.0-33.9,adult Hypothyroidism (acquired) Ingrown nail Right ankle pain Thyroid nodule Vitamin A deficiency Vitamin B1 deficiency Vitamin D deficiency Surgical History Hx of wisdom tooth extraction No pertinent past surgical history Family History Father No problems noted. Mother Hypothyroidism Brother No problems noted. 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 1. Little interest or pleasure in doing things: not at all 2. Feeling down, depressed, or hopeless: not at all 3. Trouble falling or staying asleep, or sleeping too much: not at all 4. Feeling tired or having little energy: not at all 5. Poor appetite or overeating: not at all 6. Feeling bad about yourself - or that you are a failure or have let yourself or your family down: not at all 7. Trouble concentrating on things, such as reading the newspaper or watching television: not at all 8. Moving or speaking so slowly that other people could have noticed. Or the opposite - being so fidgety or restless that you have been moving around a lot more than usual: not at all 9. Thoughts that you would be better off or of hurting yourself in some way: not at all Total score: 0 Depression Screening Interpretation: Negative Depression Screening Done: Yes 79530 - PHQ-9 Billing: Yes Source: Developed by Drs. Brice Freeman, Samara Dominique, Yuniel Griffith and colleagues, with an educational george from [employer] Thrive Questionnaire Date Thrive assessed: 08/05/24 I am a: Patient What is your living situation today?: I choose not to answer this question Within the past 12 months, did the food you bought not last and you didn't have the money to get more?: Never true Within the past 12 months, did you worry whether your food would run out before you got money to buy more?: Sometimes True Do you have trouble paying for medicines?: No Do you have trouble getting transportation to medical appointments?: I choose not to answer this question Do you have trouble paying your heating and electricity bill?: I choose not to answer this question Do you have trouble taking care of your child, family member or friend?: No Do you have trouble with day-to-day activities such as bathing, preparing meals, shopping, managing finances, etc.?: No Are you currently unemployed and looking for a job?: Yes Are you interested in more education?: Yes Please select the resources that you would like help with: None Currently or been in a relationship where the following occur: No concerns reported THRIVE Score: 1 AUDIT C Alcohol Use Questionnaire (AUDIT-C) 1. How often do you have a drink containing alcohol?: Never 3. How often do you have six or more drinks on one occasion?: Never Total Score: 0 Score Reviewed/Action Taken: Yes MARVIN-7 AMB Questionnaire MARVIN-7 Date MARVIN - 7 assessed: 08/05/24 Feeling nervous, anxious, or on edge: 0 = Not at all Not being able to stop or control worryin = Not at all Worrying too much about different things: 0 = Not at all Trouble relaxin = Not at all Being so restless that it is hard to sit still: 0 = Not at all Becoming easily annoyed or irritable: 0 = Not at all Feeling afraid as if something awful might happen: 0 = Not at all Total MARVIN-7 score (0-4 normal; 5-9 mild; 10-14 moderate; 15-21 severe): 0 Source: Developed by Samara Neville.W. Trip, Yuniel Griffith and colleagues, with an educational george from [employer] MARVIN-7 Assessment Billing MARVIN-7 Assessment Tool: MARVIN-7 Assessment 81017 ACT Questionnaire In the past 4 weeks, how much of the time did your asthma keep you from getting as much done at work, school or at home?: A little of the time During the past 4 weeks, how often have you had shortness of breath?: 1-2 times a week During the past 4 weeks, how often did your asthma symptoms wake you up at night or earlier than usual in the morning?: Once or twice per week During the past 4 weeks, how often have you had to use your rescue inhaler or nebulizer medication?: Once a week or less How would you rate your asthma control during the past 4 weeks?: Well controlled ACT Interpretation: Negative Score: 20 Physical exam (Primary Care) Vital Signs: Last Vital Signs Temp 96.9 F 08/05/24 10:02 Pulse 95 08/05/24 10:02 Resp 12 08/05/24 10:02 BP 98/67 08/05/24 10:02 Pulse Ox 99 08/05/24 10:02 Oxygen Delivery Method Room Air 08/05/24 10:02 BMI result Body Mass Index 32.1 Tobacco/Smoking Status: Tobacco use Status Tobacco use date assessed 08/05/24 08/05/24 10:04 Patient Tobacco Use Status Never used Tobacco 08/05/24 10:04 e-Cigarette/Vaping Use Never Used 08/05/24 10:04 PHQ-9: PHQ-9 Score PHQ-9: Total score 0 08/05/24 10:52 Depression Screening Interpretation: Negative Thrive Assessment: Date of Thrive Assessment Date Thrive assessed 08/05/24 08/05/24 10:04 Currently or been in a relationship where the following occur: No concerns reported Immunizations Boostrix Tdap 2.5 Lf unit-8 mcg-5 Lf/0.5 mL intramuscular syringe Performing Provider: RADHA Gonzales Performing Location: [facility] Administered by: Marvin Martinez MA on 08/05/24 10:57 Dose Route Admin Location Dispensed Lot Number Expiration Date [facility] Assistant Finance Director 0.5 mL IM Right Deltoid 0.5 mL [id number] 10/30/26 [id number] [employer] ([employer]) VIS Given Date VIS Provided VIS Publication Date 08/05/24 Single Vaccine 20 Eligibility Eligibility Date Funding Source Not [facility] Eligible 08/05/24 Private Results Reviewed Results Reviewed: Hi, Labs look great! I have sent in refill of your thyroid medication. [facility] Result Units Range Interpretation Provider Comments White Blood Count 7.7 X10*3/uL (4.8-10.8) Red Blood Count 4.68 X10*6/uL (4.20-5.50) Hemoglobin 14.1 g/dl (12.0-16.0) Hematocrit 42.6 % (37.0-47.0) Mean Corpuscular Volume 91.0 fL (80.0-98.0) Mean Corpuscular Hemoglobin 30.1 pg (27.0-33.0) Mean Corpuscular Hemoglobin Concent 33.1 g/dl (31.0-35.0) Red Cell Distribution Width 12.6 % (11.0-16.0) Platelet Count 259 X10*3/uL (160-400) Mean Platelet Volume 10.8 fL (9.4-12.3) Nucleated RBC Absolute Count (auto) 0.000 X10*3/uL (0.0-0.012) Nucleated Red Blood Cells % (auto) 0.0 /100WBC (0.0-0.2) Sodium Level 139 mmol/L (135-145) Potassium Level 3.8 mmol/L (3.3-5.1) Chloride Level 106 mmol/L (96-108) Carbon Dioxide Level 27 mmol/L (22-29) Anion Gap 10 (12-20) Low Blood Urea Nitrogen 14 mg/dL (9-16) Creatinine 0.86 mg/dL (0.5-1.4) Estimated Creatinine Clearance Calc Not Reportable Estimat Glomerular Filtration Rate > 60 Random Glucose 84 mg/dL (60-115) Estimated Average Glucose 91 mg/dL Hemoglobin A1c Percent 4.8 % (<6.0) Calcium Level 9.3 mg/dL (8.4-10.2) Ferritin 149 ng/mL (10-122) High Total Bilirubin 1.0 mg/dL (0.0-1.0) Aspartate Amino Transf (AST/SGOT) 26 U/L (5-31) Alanine Aminotransferase (ALT/SGPT) 20 U/L (0-31) Alkaline Phosphatase 69 U/L (39-117) Total Protein 7.3 g/dL (6.5-8.0) Albumin 4.6 g/dL (3.5-5.0) Triglycerides Level 65 mg/dL (<150) Cholesterol Level 155 mg/dL (<200) LDL Cholesterol, Calculated 98 mg/dL (<100) HDL Cholesterol 44 mg/dL (>40) Vitamin B12 Level 710 pg/mL (200-900) 25-Hydroxy Vitamin D Total 79.2 ng/mL (>30) Folate 13.4 ng/mL (> or = 4.0) Thyroid Stimulating Hormone (TSH) 1.99 uIU/mL (0.32-4.0) Urine Creatinine 44.58 mg/dL Urine Microalbumin < 5.0 mg/L Urine Microalbumin/Creatinine Ratio TNP Coding Level of Care Code Est Pt Level 4 (84148) Est Pt Prev Care 18-39y(60003) Diagnoses Encounter for general adult medical examination with abnormal findings Z00.01 Thyroid nodule E04.1 Hypothyroidism (acquired) E03.9 Vitamin D deficiency E55.9 MARVIN (generalized anxiety disorder) F41.1 Need for Tdap vaccination Z23 Mild intermittent asthma without complication J45.20 Asthma complication type: uncomplicated Asthma persistence: intermittent Asthma severity: mild Obesity (BMI 30.0-34.9) E66.9 Chronic left-sided low back pain without sciatica M54.50; G89.29 Chronicity: chronic Back pain laterality: left Sciatica presence: without sciatica Sacroiliac joint dysfunction of left side M53.3 Additional Codes Asthma Control Questionnaire - ACT Interpretation: Negative ([id number]) MARVIN-7 Assessment Billing - MARVIN-7 Assessment Tool: MARVNI-7 Assessment 62747 ([id number]) PHQ-9 - 14709 - PHQ-9 Billing: Yes ([id number]) Assessment & Plan Assessment & Plan (1) Encounter for general adult medical examination with abnormal findings: Onset Date: ~08/05/24 Code(s): Z00.01 - Encounter for general adult medical examination with abnormal findings Category: Medical (2) Thyroid nodule: Comment: thyroid US 07/28/2020 and this revealed a small heterogenous thyroid, consistent with miriam's disease. No true nodules were visualized, only pseudonodule Normal TSH and free T4 03/26/2023 No further imaging needed Code(s): E04.1 - Nontoxic single thyroid nodule Category: Medical (3) Hypothyroidism (acquired): Comment: We will check labs. At this time continue levothyroxine supplement. Cleared from future follow up by endocrinology Code(s): E03.9 - Hypothyroidism, unspecified Category: Medical (4) Vitamin D deficiency: Comment: We will update labs today and treat as needed. Code(s): E55.9 - Vitamin D deficiency, unspecified Category: Medical (5) MARVIN (generalized anxiety disorder): Comment: Declines medications. Uses herbal supplements. Code(s): F41.1 - Generalized anxiety disorder Category: Medical (6) Need for Tdap vaccination: Code(s): Z23 - Encounter for immunization Category: Medical (7) Asthma: Comment: Well controlled with p.r.n. Crys. Continue Code(s): J45.909 - Unspecified asthma, uncomplicated Category: Medical Qualifiers: Asthma complication type: uncomplicated Asthma persistence: intermittent Asthma severity: mild Qualified Code(s): J45.20 - Mild intermittent asthma, uncomplicated (8) Obesity (BMI 30.0-34.9): Comment: Lifestyle modifications encouraged BMI greater than 31 Code(s): E66.9 - Obesity, unspecified Category: Medical (9) Low back pain: Code(s): M54.50 - Low back pain, unspecified Category: Medical Qualifiers: Chronicity: chronic Back pain laterality: left Sciatica presence: without sciatica Qualified Code(s): M54.50 - Low back pain, unspecified; G89.29 - Other chronic pain (10) Sacroiliac joint dysfunction of left side: Code(s): M53.3 - Sacrococcygeal disorders, not elsewhere classified Category: Medical Plan . Orders: Orders TDaP Immunization Today Z23 - Encounter for immunization Comprehensive Met. Panel Today E03.9 - Hypothyroidism, unspecified, E04.1 - Nontoxic single thyroid nodule, E55.9 - Vitamin D deficiency, unspecified, F41.1 - Generalized anxiety disorder Ferritin Today E03.9 - Hypothyroidism, unspecified, E04.1 - Nontoxic single thyroid nodule, E55.9 - Vitamin D deficiency, unspecified, F41.1 - Generalized anxiety disorder Microalbumin, Random (w Creat) Today E03.9 - Hypothyroidism, unspecified, E04.1 - Nontoxic single thyroid nodule, E55.9 - Vitamin D deficiency, unspecified, F41.1 - Generalized anxiety disorder Vitamin D 25-OH Total Today E03.9 - Hypothyroidism, unspecified, E04.1 - Nontoxic single thyroid nodule, E55.9 - Vitamin D deficiency, unspecified, F41.1 - Generalized anxiety disorder Complete Blood Count no Diff Today E03.9 - Hypothyroidism, unspecified, E04.1 - Nontoxic single thyroid nodule, E55.9 - Vitamin D deficiency, unspecified, F41.1 - Generalized anxiety disorder Hemoglobin A1c Today E03.9 - Hypothyroidism, unspecified, E04.1 - Nontoxic single thyroid nodule, E55.9 - Vitamin D deficiency, unspecified, F41.1 - Generalized anxiety disorder Lipid Panel Today E03.9 - Hypothyroidism, unspecified, E04.1 - Nontoxic single thyroid nodule, E55.9 - Vitamin D deficiency, unspecified, F41.1 - Generalized anxiety disorder TSH reflex Free T4 Today E03.9 - Hypothyroidism, unspecified, E04.1 - Nontoxic single thyroid nodule, E55.9 - Vitamin D deficiency, unspecified, F41.1 - Generalized anxiety disorder Vitamin B12 and Folate Today E03.9 - Hypothyroidism, unspecified, E04.1 - Nontoxic single thyroid nodule, E55.9 - Vitamin D deficiency, unspecified, F41.1 - Generalized anxiety disorder PT Evaluation and Treatment Today M53.3 - Sacrococcygeal disorders, not elsewhere classified, M54.50 - Low back pain, unspecified Medications: New budesonide 90 mcg/actuation (Pulmicort Flexhaler) 1 inh inhalation BID 1 ea 4RF Refilled levothyroxine 50 mcg PO DAILY 90 tabs 2RF Patient Instructions: Health screenings for women You should visit your health care provider from time to time, even if you are healthy. The purpose of these visits is to: Screen for medical issues Assess your risk for future medical problems Encourage a healthy lifestyle Update vaccinations and other preventive care services Help you get to know your provider in case of an illness Information Even if you feel fine, you should still see your provider for regular checkups. These visits can help you avoid problems in the future. For example, the only way to find out if you have high blood pressure is to have it checked regularly. High blood sugar and high cholesterol levels also may not have any symptoms in the early stages. A simple blood test can check for these conditions. There are specific times when you should see your provider or receive specific health screenings. The [place] Preventive Services Task Force publishes a list of recommended screenings. Below are screening guidelines for women ages 18 to 39. BLOOD PRESSURE SCREENING Your blood pressure should be checked at least once every 3 to 5 years if: Your blood pressure is in the normal range (top number less than 120 mm Hg and bottom number less than 80 mm Hg) You don't have risk factors for high blood pressure Ask your provider if you need your blood pressure checked more often if: The top number is 120 to 129 mm Hg or the bottom number is 70 to 79 mm Hg You have diabetes, heart disease, kidney problems, are overweight, or have certain other health conditions You have a first-degree relative with high blood pressure You are Black You had high blood pressure during a If the top number is 130 mm Hg or greater or the bottom number is 80 mm Hg or greater, this is considered stage 1 hypertension. Schedule an appointment with your provider to learn how you can reduce your blood pressure. Watch for blood pressure screenings in your area. Ask your provider if you can stop in to have your blood pressure checked. BREAST CANCER SCREENING Experts do not agree about the benefits of breast self-exams in finding breast cancer or saving lives. Talk to your provider about what is best for you. A screening mammogram is not recommended for most women under age 40. Your provider may discuss and recommend mammograms, MRI scans, or ultrasounds if you have an increased risk for breast cancer, such as: A mother or sister who had breast cancer at a young age (most often starting screening earlier than the age the close relative was diagnosed) You carry a high-risk genetic marker CERVICAL CANCER SCREENING Cervical cancer screening should start at age 21 years unless your provider advises otherwise. After the first test: Women ages 21 through 29 should have a Pap test every 3 years. Exoprts do not agree on whether HPV testing is recommended for this age group. Women ages 30 through 65 should be screened with either a Pap test every 3 years or the HPV test every 5 years or both tests every 5 years (called cotesting ). Women who have been treated for precancer (cervical dysplasia) should continue to have Pap tests for 20 years after treatment or until age 65, whichever is longer. If you have had your uterus and cervix removed (total hysterectomy), and you have not been diagnosed with cervical cancer or precancer (high grade cervical neoplasia), you do not need cervical cancer screening. CHOLESTEROL SCREENING Cholesterol screening should begin at: Age 45 for women with no known risk factors for coronary heart disease Age 20 for women with known risk factors for coronary heart disease Repeat cholesterol screening should take place: Every 5 years for women with normal cholesterol levels More often if changes occur in lifestyle (including weight gain and diet) More often if you have diabetes, heart disease, kidney problems, or certain other conditions DIABETES SCREENING You should be screened for diabetes starting at age 35 and then repeated every 3 years if you have no risk factors for diabetes. Screening may need to start earlier and be repeated more often if you have other risk factors for diabetes, such as: You have a first degree relative with diabetes. You are overweight or have obesity. You have high blood pressure, prediabetes, or a history of heart disease. Screening for diabetes should be done if you are planning to become and you are overweight and have other risk factors such as high blood pressure. DENTAL EXAM Go to the dentist once or twice every year for an exam and cleaning. Your dentist will evaluate if you need more frequent visits. EYE EXAM Have an eye exam every 5 to 10 years before age 40. If you have vision problems, have an eye exam every 2 years or more often if recommended by your provider. You should have an eye exam that includes an examination of your retina (back of your eye) at least every year if you have diabetes. IMMUNIZATIONS Commonly needed vaccines include: Flu shot: get one every year. COVID-19 vaccine: ask your provider what is best for you. Tetanus-diphtheria and acellular pertussis (Tdap) vaccine: have one at or after age 19 as one of your tetanus-diphtheria vaccines if you did not receive it as an adolescent. Tetanus-diphtheria: have a booster (or Tdap) every 10 years. Varicella vaccine: receive 2 doses if you never had chickenpox or the varicella vaccine. Hepatitis B vaccine: receive 2, 3, or 4 doses, depending on your exact circumstances. Measles, mumps, and rubella (MMR) vaccine: receive 1 to 2 doses if you are not already immune to MMR. Your provider can tell you if you are immune. Ask your provider about the human papillomavirus (HPV) vaccine if: You have not received the HPV vaccine in the past You have not completed the full vaccine series (you should catch up on this shot) Ask your provider if you should receive other immunizations if you have certain health problems that increase your risk for some diseases such as pneumonia. INFECTIOUS DISEASE SCREENING Women who are sexually active should be screened for chlamydia and gonorrhea up until age 25. Women 25 years and older should be screened for chlamydia and gonorrhea if at high risk. Screening for hepatitis C: All adults ages 18 to 79 should get a one-time test for hepatitis C. people should be screened at every . Screening for human immunodeficiency virus (HIV): All people ages 15 to 65 should get a one-time test for HIV. Depending on your lifestyle and medical history, you may also need to be screened for infections such as syphilis and HIV, as well as other infections. PHYSICAL EXAM All adults should visit their provider from time to time, even if they are healthy. The purpose of these visits is to: Screen for disease Assess your risk of future medical problems Encourage a healthy lifestyle Update your vaccinations and other preventive care services Maintain a relationship with a provider in case of an illness Your height, weight, and BMI should be checked at every exam. During your exam, your provider may ask you about: Depression and anxiety Diet and exercise Alcohol and tobacco use Safety issues, such as using seat belts, smoke detectors, and intimate partner violence Your medicines and risk for interactions SKIN SELF-EXAM Your provider may check your skin for signs of skin cancer, especially if you're at high risk, such as if you: Have had skin cancer before Have close relatives with skin cancer Have a weakened immune system OTHER SCREENING Talk with your provider about colon cancer screening if you have a strong family history of colon cancer or polyps, or if you have had inflammatory bowel disease or polyps yourself. Routine bone density screening of women under 40 is not recommended.
[2024-08-05 10:02] VITALS: BP 98/67; PULSE 95; RESP 12; TEMP 36.1; O2SAT 99; BMI 32.1
== END 2024-08-05 11:01 | disposition home or self-care (01) ==
LOC: HO.HMCFM 09:41
PROVIDERS: PCP Nurse Practitioner Family; Visit Provider Nurse Practitioner Family
DX: Z00.01 Encounter for general adult medical examination with abnormal findings (principal); E04.1 Nontoxic single thyroid nodule; E66.9 Obesity, unspecified; Z68.32 Body mass index [BMI] 32.0-32.9, adult; E03.9 Hypothyroidism, unspecified; E55.9 Vitamin D deficiency, unspecified; F41.1 Generalized anxiety disorder; Z23 Encounter for immunization; J45.20 Mild intermittent asthma, uncomplicated; M54.50 Low back pain, unspecified; G89.29 Other chronic pain; M53.3 Sacrococcygeal disorders, not elsewhere classified

== ENCOUNTER → 2024-08-05 09:40 | Outpatient (BNVA) | payer OTHER, SELFPAY | PROVIDERS: PCP Nurse Practitioner Family; Visit Provider Nurse Practitioner Family | DX: Z00.01 Encounter for general adult medical examination with abnormal findings (principal); J45.909 Unspecified asthma, uncomplicated; E55.9 Vitamin D deficiency, unspecified; F41.1 Generalized anxiety disorder; E66.9 Obesity, unspecified; E51.9 Thiamine deficiency, unspecified; E50.9 Vitamin A deficiency, unspecified; E04.1 Nontoxic single thyroid nodule; E03.9 Hypothyroidism, unspecified; M53.3 Sacrococcygeal disorders, not elsewhere classified; J45.20 Mild intermittent asthma, uncomplicated; M54.50 Low back pain, unspecified; G89.29 Other chronic pain; Z68.32 Body mass index [BMI] 32.0-32.9, adult; Z23 Encounter for immunization | CPT/HCPCS: 90471; 90715; 96127; 96160; 99212; 99395 ==

== ENCOUNTER 2024-08-05 11:12 | Outpatient (REF) | payer OTHER, SELFPAY ==
[2024-08-05 14:24] LABS: Hematocrit 42.6 % (37.0-47.0); Hemoglobin 14.1 g/dl (12.0-16.0); Mean Corpuscular HGB Conc 33.1 g/dl (31.0-35.0); Mean Corpuscular Hemoglobin 30.1 pg (27.0-33.0); Mean Platelet Volume 10.8 fL (9.4-12.3); Platelet Count 259 X10*3/uL (160-400); Red Blood Count 4.68 X10*6/uL (4.20-5.50); Red Cell Distribution Width 12.6 % (11.0-16.0); White Blood Count 7.7 X10*3/uL (4.8-10.8)
[2024-08-05 14:34] LABS: Estimated Average Glucose 91 mg/dL; Hemoglobin A1c % 4.8 % (<6.0); Total Hemoglobin (HGBA1C) 3732.5593 umol/L
[2024-08-05 14:52] LABS: Creatinine Urine 44.58 mg/dL; Microalbumin Urine < 5.0 mg/L
[2024-08-05 15:08] LABS: Folate 13.4 ng/mL (> or = 4.0); Vitamin B12 710 pg/mL (200-900)
[2024-08-05 15:18] LABS: Ferritin 149 ng/mL (10-122); TSH reflex Free T4 1.99 uIU/mL (0.32-4.0); Vitamin D 25-OH Total 79.2 ng/mL (>30)
[2024-08-05 15:30] LABS: Anion Gap 10 (12-20)
[2024-08-05 15:34] LABS: Alanine Aminotransferase 20 U/L (0-31); Albumin Level 4.6 g/dL (3.5-5.0); Alkaline Phosphatase 69 U/L (39-117); Aspartate Amino Transferase 26 U/L (5-31); Blood Urea Nitrogen 14 mg/dL (9-16); Calcium 9.3 mg/dL (8.4-10.2); Carbon Dioxide 27 mmol/L (22-29); Chloride 106 mmol/L (96-108); Cholesterol 155 mg/dL (<200); Estimated Glomerular Filt Rate > 60; Glucose Random 84 mg/dL (60-115); HDL Cholesterol 44 mg/dL (>40); LDL Cholesterol Calculated 98 mg/dL (<100); Potassium 3.8 mmol/L (3.3-5.1); Sodium 139 mmol/L (135-145); Total Protein 7.3 g/dL (6.5-8.0); Triglycerides 65 mg/dL (<150)
== END 2024-08-05 11:13 | disposition home or self-care (01) ==
LOC: HO.WFDLDS 11:12
PROVIDERS: Visit Provider Nurse Practitioner Family
DX: E55.9 Vitamin D deficiency, unspecified (principal); E04.1 Nontoxic single thyroid nodule; E03.9 Hypothyroidism, unspecified; F41.1 Generalized anxiety disorder
CPT/HCPCS: 36415; 80053; 80061; 82306; 82570; 82607; 82728; 82746; 83036; 84443; 85027

== ENCOUNTER 2025-01-18 09:00 | Outpatient (REF) | payer OTHER, SELFPAY ==
[2025-01-18 12:54] LABS: Free T4 (Free Thyroxine) 1.12 ng/dL (0.71-1.85); Thyroid Stimulating Hormone 1.99 uIU/mL (0.32-4.0)
== END 2025-01-18 09:01 | disposition home or self-care (01) ==
LOC: HO.WFDLDS 09:00
PROVIDERS: Visit Provider Internal Medicine Endocrinology, Diabetes & Metabolism
DX: E03.9 Hypothyroidism, unspecified (principal)
CPT/HCPCS: 36415; 84439; 84443

== ENCOUNTER 2025-01-20 08:10 | Outpatient (AMB) | payer OTHER, SELFPAY ==
--- NOTE | 2025-01-20 08:11 | MHC.OFFVIS ---
Vital Signs 01/20/25 08:13 Height 5 ft 4 in Weight 190 lb 14.725 oz BMI 32.8 BP 92/62 Blood Pressure Location Rt brachial Position Sitting Pulse 105 H Pulse Source Pulse Oximeter Pulse Oximetry (%) 98 Oxygen Delivery Method Room Air Intake Visit Reasons: Hypothyroidism Intake Note: Patient present today for Hypothyroidism follow up visit: Data Examination Clerk Required: No Accompanied by: Self / Same As Patient Allergies house dust Allergy (Verified 01/20/25 08:14) sneezing congestion headache raw apple Adverse Reaction (Intermediate, Uncoded 01/20/25 08:14) itching raw tree nut Adverse Reaction (Intermediate, Uncoded 01/20/25 08:14) Itching Medication List - Last Reconciled 01/20/25 by Brice Barksdale MD albuterol sulfate 90 mcg/actuation (ProAir HFA) inhalation budesonide 90 mcg/actuation (Pulmicort Flexhaler) 1 inh inhalation BID levothyroxine 50 mcg PO DAILY loratadine 10 mg PO DAILY PRN [magnesium PO] montelukast 10 mg PO DAILY [multivitamin PO] [vitamin C PO] HPI Comments Details: 29 YO Female with no significant PMHx who is seen in F/U for hypothyroidism.. First diagnosed with Hypothyroidism September 2019 with labs revealing a TSH of 4.63. Currently using Levothyroxine 50 mcg PO daily. She has not yet repeated her TFTs. I repeated her thyroid US 07/28/2020 and this revealed a small heterogenous thyroid, consistent with miriam's disease. No true nodules were visualized, only pseudonodules. Reports feeling well today with no complaints. Thyroid US: 03/07/2020 Right Thyroid Lobe: 4.1 x 1.0 x 1.4 cm, volume 3.1 mL. Previously 4.3 x 0.9 x 1.4 cm, volume 2.7 mL. Parenchyma: The gland echotexture is homogeneous. Thyroid vascularity is normal. Left Thyroid Lobe: 4.4 x 1.0 x 1.3 cm, volume 2.8 mL. Previously 4.3 x 0.9 x 1.4 cm, volume 2.6 mL. Parenchyma: The gland echotexture is homogeneous. Thyroid vascularity is normal. Isthmus: 0.2 cm in maximum AP dimension. Previously 0.2 cm. RIGHT THYROID LOBE: There are 2 nodules seen. 1. Location: Midpole. Size: 0.4 x 0.3 x 0.4 cm. Previous: 0.4 x 0.3 x 0.4 cm. Nodule characteristics: Hypoechoic, smoothly marginated with no intranodular flow. 2. Location: Lower pole. Size: 0.5 x 0.3 x 0.4 cm. Previous: 0.9 x 0.5 x 0.6 cm. Nodule characteristics: Hypoechoic, irregular margins with intranodular flow. ISTHMUS: No nodules. LEFT THYROID LOBE: No nodules. NODES: No lymphadenopathy is seen in the tissue surrounding the thyroid gland. [facility], [facility] Medical History (Updated 08/05/24 @ 16:16 by Nakia Mon, DIRECTOR OF [employer]-) Bilateral hand pain BMI 33.0-33.9,adult Vitamin B1 deficiency Vitamin A deficiency Vitamin D deficiency Right ankle pain Ingrown nail Hypothyroidism (acquired) Thyroid nodule Surgical History Hx of wisdom tooth extraction No pertinent past surgical history Family History Father No problems noted. Mother Hypothyroidism Brother No problems noted. 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 There are no thyroid nodules palpated Assessment & Plan Assessment & Plan (1) Hypothyroidism (acquired): Comment: We will check labs. At this time continue levothyroxine supplement. 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 She appears to be clinically and biochemically euthyroid. Plan is patient can follow up with the primary care provider and be returned back to endocrinology as needed. Coding Level of Care Code Est Pt Level 3 (22919) Diagnoses Hypothyroidism (acquired) E03.9
[2025-01-20 08:13] VITALS: BP 92/62; PULSE 105; O2SAT 98; BMI 32.8
== END 2025-01-20 08:36 | disposition home or self-care (01) ==
LOC: HO.ENCR 08:11
PROVIDERS: PCP Nurse Practitioner Family; Visit Provider Internal Medicine Endocrinology, Diabetes & Metabolism
DX: E03.9 Hypothyroidism, unspecified (principal)
CPT/HCPCS: 99213

== ENCOUNTER → 2025-01-20 08:10 | Outpatient (BNVA) | payer OTHER, SELFPAY | PROVIDERS: PCP Nurse Practitioner Family; Visit Provider Internal Medicine Endocrinology, Diabetes & Metabolism | DX: E03.9 Hypothyroidism, unspecified (principal); Z79.890 Hormone replacement therapy | CPT/HCPCS: 99212 ==